=== PATIENT | female | born 1965 | race Caucasian/White ===

== ENCOUNTER → 2017-05-25 | Outpatient (CLI) | payer BC, OTHER ==
--- NOTE | 2017-05-25 08:48 | Diagnostic Imaging Report ---
Right breast ultrasound. Indication right breast mass. Findings: There is the cystic lesion with internal hypoechoic component measuring the 4 mm at 2:00 zone 3 CM from the nipple at the palpable area. It is in near the deep aspect of the skin. It is uncertain if this arising from skin components or the superficial breast tissue. No internal vascularity is seen and no shadowing. Impression: The palpable lesion is a 4 mm complex lesion favored to be a complicated cyst with internal debris arising from the superficial breast tissue or the deep layers of the skin. Clinical followup and followup ultrasound in 3 months to ensure no adverse development is recommended. BI-RADS 3. Dictated by: Dictated on workstation # [id number]
--- NOTE | 2017-05-25 08:51 | Diagnostic Imaging Report ---
EXAMINATION: Bilateral diagnostic mammogram with a Computer Aided Detection (CAD) system. Tomography evaluation was also performed bilaterally. INDICATION: Palpable lump in the right breast. COMPARISON: 12/13/2013. FINDINGS: The breasts are composed of heterogeneously dense parenchyma which may decrease mammographic sensitivity. There is no mass, architectural distortion, or suspicious cluster of calcifications seen. Allowing for technique and positional differences, no suspicious change is seen. IMPRESSION: Dense breasts with no definite change. ACR BI-RADS Category 2: Benign findings. Result letter will be mailed to the patient. Note: At least 10% of breast cancer is not imaged by mammography. Dictated by: Dictated on workstation # [id number]
== END ==
LOC: RAD 07:51
PROVIDERS: ATTEND Internal Medicine
DX: N60.01 Solitary cyst of right breast (principal)
CPT/HCPCS: 77066

== ENCOUNTER 2017-07-05 01:53 | Emergency (ER) | payer OTHER ==
[~2017-07-05] VITALS: Ht 162.6 cm; Wt 83.9 kg
[2017-07-05] MEDS ORDERED: NS IV 1000 ML 2,000 ML ONE ×2 (02:01→02:22)
[2017-07-05] MEDS ORDERED: FLUORESCEIN (FLUOR-I-STRIPS) 1 MG STRP ONE (02:02)
--- NOTE | 2017-07-05 02:25 | ED EENT ---
History of Present Illness General Chief Complaint: Exposure Stated Complaint: CHEMICAL SPLASHED IN EYE Source: patient Exam Limitations: no limitations History of Present Illness Time seen by provider: 02:14 Initial Comments Patient presents to ER after being exposed just prior to arrival to a citrus surface hall cleaner called citrus chisel. She had it sprayed in both of her eyes so she washed her eyes out in the sink for 5 minutes with sink water and then had a bottle of saline flushed into her eyes. She then presented to the ER. She is having burning sensation in both her eyes. No prior history of injury to her eyes. She says she was mixing up a spray bottle of the citrus chisel to use to decrease the floor and poured the agent into the bottle and then put a hose down into the bottle to fill it up but had too much pressure and it sprayed straight up out of the bottle into her face ran down her neck and back as well as in the both of her eyes. Patient wears glasses to read only. Allergies and Home Medications Allergies Coded Allergies: Penicillins (Verified Allergy, Unknown, 07/05/17) Sulfa (Sulfonamide Antibiotics) (Verified Allergy, Unknown, 07/05/17) codeine (Verified Allergy, Unknown, 07/05/17) hydrocodone (Verified Allergy, Unknown, 07/05/17) levofloxacin (Verified Allergy, Unknown, 07/05/17) promethazine (Verified Allergy, Unknown, 07/05/17) Home Medications Dextran 70/Hypromellose 15 Ml Drops, 2-4 DROPS OP Q2H PRN for EYE REDNESS, #15 Ref 0 Prescribed by: GAYTARI DOUGHERTY on 07/05/17 0351 Review of Systems Constitutional: No chills, No diaphoresis Eyes: Denies Blindness, Blurred Vision, Denies Drainage, Pain (burning) Ears: Denies Dizziness, Denies Pain Nose: denies clots, denies congestion Mouth: denies clots, denies loose teeth Throat: denies pain, denies swelling Respiratory: No cough, No short of breath Cardiovascular: No chest pain, No Hx of Intervention Gastrointestinal: No nausea, No vomiting Musculoskeletal: No joint pain, No joint swelling Skin: No lumps, other (pain and burning across to her face where she was splashed.) Neurological: Denies Headache, Denies Numbness Past Xxuxpwn-Rftygw-Kdklud Hx Patient Social History Alcohol Use: Denies Use Recreational Drug Use: No Smoking Status: Current Everyday Smoker Type Used: Cigarettes Recent Foreign Travel: No Contact w/Someone Who Travel: No Recent Hopitalizations: No Physical Abuse: No Sexual Abuse: No Mistreated: No Fear: No Surgeries History of Surgeries: No Respiratory History of Respiratory Disorde: No Cardiovascular History of Cardiac Disorders: No Neurological History of Neurological Disord: No Genitourinary History of Genitourinary Disor: No Gastrointestinal History of Gastrointestinal Di: No Musculoskeletal History of Musculoskeletal Dis: No Endocrine History of Endocrine Disorders: No HEENT History of HEENT Disorders: No Cancer History of Cancer: No Psychosocial History of Psychiatric Problem: No Suicide Risk Score: 0 Integumentary History of Skin or Integumenta: No Blood Transfusions History of Blood Disorders: No Visual Acuity : Eye Location: Bilaterally (right 20/70, left 20/40, bilateral 20/40.) Vision Acuity Degree: 20/40 Physical Exam Vital Signs Vital Sign - Last 12Hours 07/05/17 02:05 Temp 98.9 Pulse 69 Resp 20 B/P (MAP) 148/73 Pulse Ox 90 O2 Delivery Room Air General Appearance: WD/WN, mild distress Eyes: bilateral eye PERRL, bilateral eye EOMI, bilateral eye conjunctival inflammation, bilateral eye lid inflammation, bilateral eye other (erythema periorbital) Ears: bilateral ear auricle normal, bilateral ear canal normal Nose: normal inspection, No active bleeding Mouth/Throat: normal mouth inspection, pharynx normal Neck: full range of motion, normal inspection Cardiovascular: normal peripheral pulses, regular rate, rhythm Respiratory: chest non-tender, lungs clear, normal breath sounds Neurologic/Psychiatric: alert, oriented x 3 Skin: warm/dry, other (face and neck is erythematous and irritated) Progress/Results/Core Measures Results/Orders My Orders Orders - GAYATRI DOUGHERTY Ns Iv 1000 Ml (Sodium Chloride 0.9%) (07/05/17 02:01) Fluorescein Strips ([id number]-[id number]) (07/05/17 02:02) Ns Iv 1000 Ml (Sodium Chloride 0.9%) (07/05/17 02:22) Tetracaine 0.5% Ophth Caitlin Sdv (Tetracai (07/05/17 03:15) Tetracaine 0.5% Ophth Caitlin Sdv (Tetracai (07/05/17 02:56) Fluorescein Strips ([id number]-E-Ihiddl) (07/05/17 03:30) Medications Given in ED Current Medications Medications Dose Ordered Sig/Ventura Route Start Time Stop Time Status Last Admin Dose Admin Fluorescein Sodium 1 mg ONCE ONCE OU 07/05/17 03:30 07/05/17 03:31 DC 07/05/17 03:27 1 MG Sodium Chloride 2,000 ml @ ud STK-MED ONCE .ROUTE 07/05/17 02:01 07/05/17 02:09 DC 07/05/17 02:28 2,000 MLS/HR Sodium Chloride 2,000 ml @ ud STK-MED ONCE .ROUTE 07/05/17 02:22 07/05/17 02:30 DC 07/05/17 02:11 2,000 MLS/HR Tetracaine HCl 1 OR 2 DROPS INTO AFFEC... ONCE ONCE OP 07/05/17 03:15 07/05/17 03:16 DC 07/05/17 03:27 4 ML Vital Signs/I&O Vital Sign - Last 12Hours 07/05/17 02:05 Temp 98.9 Pulse 69 Resp 20 B/P (MAP) 148/73 Pulse Ox 90 O2 Delivery Room Air Progress Note : Time: 03:45 Progress Note Use 2 L each eye to flush the eyes using the Darren lens 30 minutes and then allowed her to rest for about 30 minutes. We gave her a couple tetracaine drops for comfort which helped immensely. We discussed everything that the poison center mentioned with the patient. Her pH by litmus paper was 7 and doing a Wood 's lamp there was no direct ulceration although her some streaky a noted in the sclera of the eye. Tried to call and discuss with the local optometry and also set up some follow-up for the patient in the morning and left messages. If they call back we will discuss the findings and get this set up. Consults Consults #1: Consults Notes poison Control Contacted @ 0220: Sodium hydroxide is the primary ingredient of this retail administrative assistant so we discussed and the plan is to flush both eyes for 30 minutes. After that allow the eyes to rest for approximately 30 minutes and then tested pH and if it's neutral and we can do a Krause lamp examination. We can use tetracaine drops after the flushes done just for comfort. They recommend artificial tears after that just to help the cornea heal. [place] may appear up to 1-2 days later. They recommend ophthalmology follow-up within 1-2 days. Normal saline or lactated Ringer's for flush. Consults #2: Consulting Physician: JALEN WOODSON OD Departure Impression Impression: Primary Impression: Alkaline chemical burn of left eye Additional Impression: Alkaline chemical burn of right eye Disposition: HOME, SELF-CARE Condition: Stable Departure-Patient Inst. Decision time for Depature: 04:00 Referrals: NO,LOCAL PHYSICIAN (PCP) Primary Care Physician AUBREE CUELLO (Family) Primary Care Physician Patient Instructions: Chemical Exposure to the Skin (DC), Chemical Eye Injury ( DC) Add. Discharge Instructions: Use regular soap water to clean the face and use a moisturizing ointment such as Eucerin, Cerave, or Nutraderm to keep the skin moist. You can use Artificial Tears 2-4 drops each eye every one to 2 hours to keep your eyes moist and help the cornea heal faster. Plan to follow up with commissioner of conciliation or ophthalmology in one to 2 days. After 0800 in the morning please call Dr. Woodson at [phone] to be seen either today or tomorrow for further evaluation. Thedischarge instructions reviewed with patient and/or family. Voiced understanding. Scripts Dextran 70/Hypromellose (Artificial Tears Eye Drops) 15 Ml Drops 2-4 DROPS OP Q2H Y for EYE REDNESS, #15 ML 0 Refills Prov: GAYATRI DOUGHERTY 07/05/17 Work/School Note: Work Release Form Date Seen in the Emergency Department: Jul 05, 2017 Return to Work: Jul 08, 2017 Restrictions: Need Release from Doctor Copy Copies To 1: GERRY QUISPE DO Copies To 2: JALEN WOODSON OD, TITUS J Jul 05, 2017 02:25
[2017-07-05] MEDS ORDERED: TETRACAINE 0.5% OPHTH SOLN 4 ML BTL (SINGLE DOSE ONLY) ONE (02:56)
[2017-07-05] MEDS ORDERED: TETRACAINE 0.5% OPHTH SOLN 4 ML BTL (SINGLE DOSE ONLY) OP ONE (03:15)
[2017-07-05] MEDS ORDERED: FLUORESCEIN (FLUOR-I-STRIPS) 1 MG STRP OU ONE (03:30)
[2017-07-05] MEDS ORDERED: DEXT15DR21 OP (03:51)
[2017-07-05 04:12] VITALS: BP 141/75
== END 2017-07-05 04:12 | disposition home or self-care (01) ==
LOC: EDUNIT# 01:53 → ER 01:57
DX: T65.891A Toxic effect of other specified substances, accidental (unintentional), initial encounter (principal); T26.51XA Corrosion of right eyelid and periocular area, initial encounter; T26.61XA Corrosion of cornea and conjunctival sac, right eye, initial encounter; T26.62XA Corrosion of cornea and conjunctival sac, left eye, initial encounter; T26.52XA Corrosion of left eyelid and periocular area, initial encounter; T32.0 Corrosions involving less than 10% of body surface; F17.210 Nicotine dependence, cigarettes, uncomplicated
CPT/HCPCS: 99282

== ENCOUNTER → 2017-09-07 | Outpatient (CLI) | payer OTHER ==
[~2017-09-07] MED LIST: DEXT15DR21 OP
--- NOTE | 2017-09-07 22:37 | Diagnostic Imaging Report ---
Right breast ultrasound. INDICATION: Right breast lump. FINDINGS: At 2 o'clock zone, 3 cm from the nipple, there is a 4 mm cyst seen just deep to the skin without change from the 05/25/2017 and corresponds with the palpable area. It appears to have minimal internal debris with through transmission and no internal vascularity. IMPRESSION: Unchanged minimally complicated 4 mm cyst just deep to the skin at 2 o'clock zone 3 cm from the nipple correlating with the palpable area. No suspicious solid component or change from the previous study. Clinical follow-up recommended. ACR BI-RADS Category 2: Benign findings. Dictated by: Dictated on workstation # [id number]
== END ==
LOC: RAD 08:45
PROVIDERS: ATTEND Internal Medicine
DX: N60.01 Solitary cyst of right breast (principal)

== ENCOUNTER 2017-10-02 00:22 | Emergency (ER) | payer OTHER ==
[~2017-10-02] VITALS: Ht 162.6 cm; Wt 86.2 kg
[2017-10-02 00:39] LABS: BASOPHILS # (AUTO) 0.1 10^3/uL (0.0-0.1); BASOPHILS % (AUTO) 0 % (0-10); EOSINOPHILS # (AUTO) 0.1 10^3/uL (0.0-0.3); EOSINOPHILS % (AUTO) 0 % (0-10); LYMPHOCYTES # (AUTO) 3.6 X 10^3 (1.0-4.0); LYMPHOCYTES % (AUTO) 26 % (12-44); MEAN CORPUSCULAR HEMOGLOBIN 32 PG (25-34); MEAN CORPUSCULAR HGB CONC 35 G/DL (32-36); MEAN CORPUSCULAR VOLUME 92 FL (80-99); MEAN PLATELET VOLUME 9.6 FL (7.4-10.4); MONOCYTES % (AUTO) 8 % (0-12); NEUTROPHILS # (AUTO) 8.9 X 10^3 (1.8-7.8); NEUTROPHILS % (AUTO) 65 % (42-75); PLATELET COUNT 223 10^3/uL (130-400); RED BLOOD COUNT 4.75 10^6/uL (4.35-5.85); WHITE BLOOD COUNT 13.6 10^3/uL (4.3-11.0)
--- NOTE | 2017-10-02 00:39 | ED Headache ---
General Stated Complaint: STROKE Source: patient, spouse Exam Limitations: no limitations (GAYATRI DOUGHERTY) History of Present Illness Time seen by provider: 00:25 Initial Comments Patient presents to ER by private conveyance with her spouse with a chief complaint that she is having a headache with blindness in her left eye this started suddenly 30 minutes ago without any warning. She does not have a history of migraines or headaches. No history of trauma recently. She was not doing anything significant at the time the headache came on but she took 4 tablets ibuprofen and did not have any relief from this. She says is worse headache she's ever had in her life. She has photophobia but no phonophobia. She is on doxycycline outpatient for a sinus infection of her left maxillary sinus by her primary care physician. She is also having some nausea but no vomiting. She used to smoke but quit does have a history of COPD but no vasculopathy or coronary artery disease. She is on amlodipine for high blood pressure. 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 She was not having any headaches with it but had some changes in her iris and pupil. She saw a neurologist at for it but they never came up with any definitive diagnosis or treatment plan. She has not had any problems with it since. (GAYATRI DOUGHERTY) Allergies and Home Medications Allergies Coded Allergies: Penicillins (Verified Allergy, Unknown, 07/05/17) Sulfa (Sulfonamide Antibiotics) (Verified Allergy, Unknown, 07/05/17) codeine (Verified Allergy, Unknown, 07/05/17) hydrocodone (Verified Allergy, Unknown, 07/05/17) levofloxacin (Verified Allergy, Unknown, 07/05/17) promethazine (Verified Allergy, Unknown, 07/05/17) Uncoded Allergies: IV CONTRAST (Allergy, Mild, 10/02/17) Home Medications Amlodipine/Benazepril 1 Cap Cap, 1 CAP PO DAILY, (Reported) Cyclobenzaprine HCl 5 Mg Tablet, 5 MG PO, (Reported) [ibuprofen] , for PAIN-MILD, (Reported) Constitutional: No chills, No fever, No malaise Eyes: See HPI, Blindness, Photophobia Ears, Nose, Mouth, Throat: denies ear pain, denies mouth pain Respiratory: No cough, No short of breath Cardiovascular: No chest pain, No palpitations, No syncope Gastrointestinal: No abdominal pain, No constipation, No diarrhea, nausea, No vomiting Genitourinary: No discharge, No dysuria : No (GAYATRI DOUGHERTY) Past Ylsbujr-Mmxiuy-Etcxvh Hx Patient Social History Alcohol Use: Denies Use Recreational Drug Use: No Smoking Status: Former Smoker Type Used: Cigarettes Recent Foreign Travel: No Contact w/Someone Who Travel: No Recent Hopitalizations: No (GAYATRI DOUGHERTY) Surgeries History of Surgeries: No (GAYATRI DOUGHERTY) Respiratory History of Respiratory Disorde: No (GAYATRI DOUGHERTY) Cardiovascular History of Cardiac Disorders: No (GAYATRI DOUGHERTY) Neurological History of Neurological Disord: No (GAYATRI DOUGHERTY) Genitourinary History of Genitourinary Disor: No (GAYATRI DOUGHERTY) Gastrointestinal History of Gastrointestinal Di: No (GAYATRI DOUGHERTY) Musculoskeletal History of Musculoskeletal Dis: No (GAYATRI DOUGHERTY) Endocrine History of Endocrine Disorders: No (GAYATRI DOUGHERTY) HEENT History of HEENT Disorders: No (GAYATRI DOUGHERTY) Cancer History of Cancer: No (GAYATRI DOUGHERTY) Psychosocial History of Psychiatric Problem: No (GAYATRI DOUGHERTY) Integumentary History of Skin or Integumenta: No (GAYATRI DOUGHERTY) Blood Transfusions History of Blood Disorders: No (GAYATRI DOUGHERTY) Physical Exam Vital Signs Vital Sign - Last 12Hours 10/02/17 00:22 Temp 98.0 Pulse 74 Resp 18 B/P (MAP) 166/78 (107) Pulse Ox 99 O2 Delivery Room Air (SHYRAYSA Figueroa MD) Vital Signs Capillary Refill : (GAYATRI DOUGHERTY) General Appearance: severe distress HEENT: PERRL/EOMI, TMs normal, pharynx normal, other (left maxillary tenderness to palpation) Neck: non-tender, normal inspection Cardiovascular: normal peripheral pulses, regular rate, rhythm, no edema Respiratory: chest non-tender, lungs clear, normal breath sounds, no respiratory distress Gastrointestinal: normal bowel sounds, non tender, soft Extremities: normal range of motion, non-tender, no pedal edema, no calf tenderness, normal capillary refill Psychiatric: alert, oriented x 3 Cra[place] Nerves: normal hearing, normal speech, PERRL, No facial asymmetry, No facial droop, other (left eye photophobia and decreased vision.) Coordination/Gait: normal gait Motor/Sensory: no motor deficit, no sensory deficit (4 extremities), no pronator drift Reflexes: 2+ Bicep (R), 2+ Bicep (L) Skin: normal color, warm/dry (GAYATRI DOUGHERTY) Discussed Risk,Benefits: Yes Patient Consents: Yes Position: Lying, Right Sterile Technique: Yes Opening Pressure: 32 Fluid Color: straw Size of Disposal Tray Used: Adult Other Comment: [place] tap. Patient tolerated well. (GAYATRI DOUGHERTY) Progress/Results/Core Measures Results/Orders Lab Results Laboratory Tests Test 10/02/17 00:25 10/02/17 00:28 10/02/17 01:30 10/02/17 03:13 Range/Units Erythrocyte Sedimentation Rate 4 0-30 MM/HR C-Reactive Protein High Sensitivity 0.82 H 0.00-0.50 MG/DL White Blood Count 13.6 H 4.3-11.0 10^3/uL Red Blood Count 4.75 4.35-5.85 10^6/uL Hemoglobin 15.1 11.5-16.0 G/DL Hematocrit 44 35-52 % Mean Corpuscular Volume 92 80-99 FL Mean Corpuscular Hemoglobin 32 25-34 PG Mean Corpuscular Hemoglobin Concent 35 32-36 G/DL Red Cell Distribution Width 13.0 10.0-14.5 % Platelet Count 223 130-400 10^3/uL Mean Platelet Volume 9.6 7.4-10.4 FL Neutrophils (%) (Auto) 65 42-75 % Lymphocytes (%) (Auto) 26 12-44 % Monocytes (%) (Auto) 8 0-12 % Eosinophils (%) (Auto) 0 0-10 % Basophils (%) (Auto) 0 0-10 % Neutrophils # (Auto) 8.9 H 1.8-7.8 X 10^3 Lymphocytes # (Auto) 3.6 1.0-4.0 X 10^3 Monocytes # (Auto) 1.0 0.0-1.0 X 10^3 Eosinophils # (Auto) 0.1 0.0-0.3 10^3/uL Basophils # (Auto) 0.1 0.0-0.1 10^3/uL Sodium Level 140 135-145 MMOL/L Potassium Level 4.1 3.6-5.0 MMOL/L Chloride Level 100 98-107 MMOL/L Carbon Dioxide Level 28 21-32 MMOL/L Anion Gap 12 5-14 MMOL/L Blood Urea Nitrogen 13 7-18 MG/DL Creatinine 0.72 0.60-1.30 MG/DL Estimat Glomerular Filtration Rate > 60 BUN/Creatinine Ratio 18 Glucose Level 120 H 70-105 MG/DL Calcium Level 9.6 8.5-10.1 MG/DL Total Bilirubin 0.5 0.1-1.0 MG/DL Aspartate Amino Transf (AST/SGOT) 15 5-34 U/L Alanine Aminotransferase (ALT/SGPT) 18 0-55 U/L Alkaline Phosphatase 74 40-136 U/L Total Protein 7.7 6.4-8.2 GM/DL Albumin 4.6 H 3.2-4.5 GM/DL Urine Color YELLOW Urine Clarity VERY CLOUDY H Urine pH 7 5-9 Urine Specific [place] 1.010 L 1.016-1.022 Urine Protein NEGATIVE NEGATIVE Urine Glucose (UA) NEGATIVE NEGATIVE Urine Ketones NEGATIVE NEGATIVE Urine Nitrite NEGATIVE NEGATIVE Urine Bilirubin NEGATIVE NEGATIVE Urine Urobilinogen NORMAL NORMAL MG/DL Urine Leukocyte Esterase NEGATIVE NEGATIVE Urine RBC (Auto) NEGATIVE NEGATIVE Urine RBC NONE /HPF Urine WBC NONE /HPF Urine Squamous Epithelial Cells 2-5 /HPF Urine Crystals PRESENT H /LPF Urine Amorphous Sediment LARGE DHIRAJ URATES H /LPF Urine Bacteria NEGATIVE /HPF Urine Casts NONE /LPF Urine Mucus NEGATIVE /LPF Urine Culture Indicated NO Urine Opiates Screen NEGATIVE NEGATIVE Urine Oxycodone Screen NEGATIVE NEGATIVE Urine Methadone Screen NEGATIVE NEGATIVE Urine Propoxyphene Screen NEGATIVE NEGATIVE Urine Barbiturates Screen NEGATIVE NEGATIVE Ur Tricyclic Antidepressants Screen NEGATIVE NEGATIVE Urine Phencyclidine Screen NEGATIVE NEGATIVE Urine Amphetamines Screen NEGATIVE NEGATIVE Urine Methamphetamines Screen NEGATIVE NEGATIVE Urine Benzodiazepines Screen NEGATIVE NEGATIVE Urine Cocaine Screen NEGATIVE NEGATIVE Urine Cannabinoids Screen NEGATIVE NEGATIVE CSF Tube Number 4 CSF Appearance CLEAR CSF Color COLORLESS CSF WBC 0 0-5 CELLS CSF RBC 4 H 0-0 CELLS CSF Lymphocytes % CSF Mononuclear WBCs % CSF Polynuclear WBCs % CSF Glucose 80 50-80 MG/DL CSF Total Protein 20 15-40 MG/DL (RAYSA HE MD) My Orders Orders - RAYSA HE MD Diphenhydramine Injection (Benadryl Inje (10/02/17 08:00) (RAYSA HE MD) Medications Given in ED Current Medications Medications Dose Ordered Sig/Ventura Route Start Time Stop Time Status Last Admin Dose Admin Fentanyl Citrate 50 mcg ONCE ONCE IVP 10/02/17 00:45 10/02/17 00:46 DC 10/02/17 04:06 50 MCG Fentanyl Citrate 100 mcg ONCE ONCE IVP 10/02/17 01:15 10/02/17 01:16 DC 10/02/17 01:23 100 MCG Iohexol 75 ml ONCE ONCE IV 10/02/17 05:30 10/02/17 05:38 DC 10/02/17 05:19 75 ML Ketorolac Tromethamine 15 mg ONCE ONCE IVP 10/02/17 02:00 10/02/17 02:01 DC 10/02/17 02:02 15 MG Ondansetron HCl 4 mg ONCE ONCE IVP 10/02/17 00:45 10/02/17 00:46 DC 10/02/17 01:22 4 MG Sodium Chloride 80 ml ONCE ONCE IV 10/02/17 05:30 10/02/17 05:38 DC 10/02/17 05:19 80 ML Vancomycin HCl 1000 mg/Sodium Chloride 250 ml @ 250 mls/hr ONCE ONCE IV 10/02/17 02:15 10/02/17 03:14 DC 10/02/17 02:41 250 MLS/HR (RAYSA HE MD) Vital Signs/I&O Vital Sign - Last 12Hours 10/02/17 00:22 Temp 98.0 Pulse 74 Resp 18 B/P (MAP) 166/78 (107) Pulse Ox 99 O2 Delivery Room Air (RAYSA HE MD) Progress Note #1: Time: 00:38 Progress Note Concern for subarachnoid hemorrhage versus worsening maxillary sinus disease. Establish an IV and get a CT scan of the head we will address her pain and nausea. Progress Note #2: Time: 01:12 Progress Note The patient's pain was 12 out of 10 on arrival but is now 9 out of 10 after getting some pain medicine. Nausea is still present so we'll give her some more Zofran. She has an allergy to promethazine. CT does not show anything that would acutely explain her symptoms. Plan is to get her pain under better control and get a good eye exam. 0200: Funduscopic Eye exam unrevealing. We'll patient is having some left sided neck stiffness and pain she is not having any fever or altered mental status. She does have an prior infection in the maxillary sinus being treated with doxycycline appropriately. She is having some left temporal tenderness as well to palpation that was not present when she initially arrived. Certainly will think about giant cell arteritis and get an ESR/CRP. Plan on obtaining cerebral spinal fluid looking for evidence of subarachnoid hemorrhage not seen on imaging or infection. Bilateral visual acuity is 20/40, right eye is 20/30 and left eye is 20/40. Progress Note #3: Time: 05:02 Progress Note For reference tube 1 red out an average of 7 red blood cells and 1 white blood cell between both windows. (GAYATRI DOUGHERTY) Progress Note : Time: 07:55 Progress Note Patient developed itching redness and swelling over her face following CT with contrast. Patient received 50 mg of Benadryl IV. Patient was in no respiratory distress and demonstrated no wheezing. (RAYSA HE MD) Diagnostic Imaging Diagonstic Imaging: CT Plain Films/CT/US/NM/MRI: head (maxillofacial) Comments No acute intracranial bleed, mass, mass effect. Minimal ethmoid/maxillary sinus mucosal thickening. Reviewed: Reviewed [place] Study, Reviewed by Me, Discussed w/ Radiologist (neg) Diagonstic Imaging: CT Plain Films/CT/US/NM/MRI: head (angiogram head and neck) Comments No hemodynamically significant stenosis and no aneurysm in the anterior/ posterior circulation. Atherosclerosis and vascular tortuosity without hemodynamically significant stenosis, dissection, or aneurysm in the neck. Centrilobular emphysema. Cervical spondylosis. Reviewed: Reviewed [place] Study, Reviewed by Me (GAYATRI DOUGHERTY) Consults Consults : Consults Notes 0355: Marilee Faria Coordinator: Dr Akins, Neurosurgery: They can do cerebrovascular and he is worried at that if this is a subarachnoid hemorrhage that's what she would need and that the patient would be better served at . They also are on ICU diversion. (GAYATRI DOUGHERTY) Transfer of Care Transfer of Care Time: 06:30 Care transferred to: Shy (GAYATRI DOUGHERTY) Departure Impression Impression: Primary Impression: [place] headache Disposition: 02 XFER SHT-TRM HOSP Condition: Stable Transfer Time Spoke to Accepting Phy: 04:07 Transfer Progress Notes Coordinator: Will get Triage Coordinator RN. 0425: Spoke with Dr. Unger, neurosurgery and he says go ahead and get a CT angiogram of the head and neck and he will talk to Dr. Willett neuro critical care and call us back. 0445: Dr. Unger called back after speaking with Dr. Willett and they will wait to see the results of the CT angiogram as long as the patient is stable to help them decide where the patient needs to go however they more than happy to take the patient. 0515: Stat read CT report called to Dr. Unger. Report left with Kenia triage nurse. 0531: Patient is accepted and they have a bed for her to Dr. Willett. Transfer Facility: [facility] Method of Transfer: EMS ([facility]) (GAYATRI DOUGHERTY) Departure-Patient Inst. Referrals: NO,LOCAL PHYSICIAN (PCP) Primary Care Physician AUBREE CUELLO (Family) Primary Care Physician Copy Copies To 1: GERRY QUISPE TITUS J Oct 02, 2017 00:39 RAYSA HE MD Oct 02, 2017 07:56
[2017-10-02] MEDS ORDERED: fentaNYL INJECTION 100 MCG/2 ML AMP IVP ONE ×3 (00:45→04:00)
[2017-10-02] MEDS ORDERED: ONDANSETRON 4 MG/2 ML (SDV) Z0FRAN IVP ONE ×3 (00:45→01:15)
[2017-10-02 00:52] LABS: ALANINE AMINOTRANSFERASE 18 U/L (0-55); ALBUMIN 4.6 GM/DL (3.2-4.5); ANION GAP 12 MMOL/L (5-14); ASPARTATE AMINO TRANSFERASE 15 U/L (5-34); BILIRUBIN,TOTAL 0.5 MG/DL (0.1-1.0); BLOOD UREA NITROGEN 13 MG/DL (7-18); BUN/CREATININE RATIO 18; CALCIUM 9.6 MG/DL (8.5-10.1); CARBON DIOXIDE 28 MMOL/L (21-32); CHLORIDE 100 MMOL/L (98-107); CREATININE SERUM 0.72 MG/DL (0.60-1.30); GFR ESTIMATED > 60; GLUCOSE 120 MG/DL (70-105); POTASSIUM 4.1 MMOL/L (3.6-5.0); SODIUM 140 MMOL/L (135-145); TOTAL PROTEIN 7.7 GM/DL (6.4-8.2)
[2017-10-02 01:38] LABS: BILIRUBIN,URINE NEGATIVE (NEGATIVE); KETONES,URINE NEGATIVE (NEGATIVE); LEUKOCYTE ESTERASE ,URINE NEGATIVE (NEGATIVE); NITRITE,URINE NEGATIVE (NEGATIVE); PH,URINE 7 (5-9); PROTEIN,URINE NEGATIVE (NEGATIVE); UROBILINOGEN,URINE NORMAL (NORMAL)
[2017-10-02] MEDS ORDERED: KETOROLAC 30 MG/ML VIAL IVP ONE (02:00)
[2017-10-02] MEDS ORDERED: VANCOMYCIN INJECTION 1,000 MG in NS (IVPB) 250 ML IV ONE (02:15)
[2017-10-02 03:34] LABS: APPEARANCE,CSF CLEAR; COLOR,CSF COLORLESS; WHITE BLOOD CELL,CSF 0 CELLS (0-5)
[2017-10-02 03:47] LABS: CSF GLUCOSE 80 MG/DL (50-80); CSF TOTAL PROTEIN 20 MG/DL (15-40)
[2017-10-02] MEDS ORDERED: IOHEXOL 350 MG/ML 100 ML (OMNIPAQUE 350) VIAL IV ONE (05:30)
[2017-10-02] MEDS ORDERED: NS 100 ML (IVPB) BAG IV ONE (05:30)
[2017-10-02] MEDS ORDERED: ibuprofen (05:49)
[2017-10-02] MEDS ORDERED: CYCL5TAB PO (05:49)
[2017-10-02] MEDS ORDERED: NF-LT10/20 PO (05:51)
--- NOTE | 2017-10-02 06:45 | Diagnostic Imaging Report ---
PROCEDURE: CT angiography of the head and CT angiography of the neck with and without contrast. TECHNIQUE: Contiguous noncontrast images were obtained from the skull base through the vertex. After intravenous contrast administration, helical CT angiography of the neck was performed. Source data was reformatted into multiple MIP projections. Delayed post contrast acquisition was also obtained. INDICATION: Severe headache. FINDINGS: Precontrast imaging demonstrates ventricles and sulci to be unremarkable. Normal nathan-white differentiation. No suggestion for edema. No intracranial hemorrhage. Aortic arch incompletely imaged. There does appear to be some calcified plaquing at the aortic arch. Visualized portions of the brachiocephalic trunk, right common carotid artery, and right carotid bifurcation are unremarkable without significant stenosis. Mild plaque-like formation with calcification at the proximal internal carotid artery. The internal carotid artery is markedly tortuous with areas of folding and kinking present, however, no significant stenosis present. The left common carotid artery origin is not well visualized. Visualized left common carotid artery unremarkable. There is atherosclerotic plaquing with calcification at the bifurcation and proximal internal carotid artery. There is mildly tortuous course of the left internal carotid artery. No stenosis. There is atherosclerotic plaquing at the origin of the left vertebral artery without significant stenosis. Right vertebral artery appearing relatively unremarkable. There is advanced emphysematous changes of the visualized lung apices. Cervical spondylosis present. CTA of the [place] demonstrates the intracranial portions of the bilateral internal carotid arteries to be unremarkable without significant stenosis. There is some atherosclerotic plaquing particularly at the left cavernous/supraclinoid portion on the intracranial artery without stenosis. The bilateral anterior cerebral arteries unremarkable. The middle cerebral arteries also appearing unremarkable. No evidence for large-vessel occlusion or significant vascular malformation. The posterior circulation demonstrates basilar artery to be unremarkable. The bilateral posterior cerebral arteries appearing unremarkable. Postcontrast imaging of the head demonstrates no abnormal enhancing intracranial mass lesion. IMPRESSION: CTA of the neck demonstrates atherosclerotic and vascular tortuosity without findings to suggest significant stenosis. No intraluminal abnormality to suggest dissection. No aneurysm. CTA of the [place] demonstrates no findings to suggest significant stenosis and/or aneurysm. A preliminary report was provided by [employer]. Dictated by: Dictated on workstation # [id number]
--- NOTE | 2017-10-02 07:22 | Diagnostic Imaging Report ---
INDICATION: Severe headache Images through the head were obtained without contrast. The ventricles are normal in size, shape and position. There is no acute parenchymal hemorrhage, edema or mass. There is no extra-axial mass or hemorrhage. IMPRESSION: Normal CT of the head. Dictated by: Dictated on workstation # [id number]
--- NOTE | 2017-10-02 07:28 | Diagnostic Imaging Report ---
PROCEDURE: CT maxillofacial without contrast. TECHNIQUE: Multiple contiguous axial images were obtained through the facial bones without the use of intravenous contrast. INDICATION: Severe headache. FINDINGS: There is minimal ethmoid and maxillary sinus mucosal thickening. No air-fluid levels. The ostiomeatal complexes appear with minimal soft tissue density but overall relatively unobstructed. Nasal cavity with mild rightward nasal septal deviation. Osseous structures appear intact and without acute finding. Orbits unremarkable. IMPRESSION: Minimal ethmoid and maxillary sinus mucosal thickening. A preliminary report was provided by [employer]. Dictated by: Dictated on workstation # [id number]
[2017-10-02] MEDS ORDERED: diphenhydrAMINE 50 MG/ML INJ (BENADRYL) ONE (07:51)
[2017-10-02] MEDS ORDERED: diphenhydrAMINE 50 MG/ML INJ (BENADRYL) IVP ONE (08:00)
[2017-10-02 08:35] VITALS: BP 150/81
[2017-10-04 15:26] LABS: HSV 1 DNA PCR Not Detected (Not Detected)
[2017-10-05 06:59] LABS: HSV 2 DNA PCR Not Detected (Not Detected)
[2017-10-05 15:31] LABS: STREP PNEUMOCOCCUS ANTIG Negative
== END 2017-10-02 08:35 | disposition short-term general hospital (02) ==
LOC: EDUNIT# 00:22 → ER 00:24
DX: G44.53 Primary thunderclap headache (principal); J44.9 Chronic obstructive pulmonary disease, unspecified; Z87.891 Personal history of nicotine dependence
CPT/HCPCS: 36415; 62270; 70450; 70486; 70496; 70498; 80053; 80306; 81000; 82945; 84157; 85025; 85652; 86141; 87070; 87205; 87529; 87899; 89051

== ENCOUNTER 2017-12-27 05:08 | Emergency (ER) | payer OTHER ==
[~2017-12-27] VITALS: Ht 162.6 cm; Wt 92.5 kg
[~2017-12-27 05:08] MED LIST changes: +CYCL5TAB PO; +NF-LT10/20 PO; +ibuprofen
[2017-12-27] MEDS ORDERED: KETOROLAC 30 MG/ML VIAL IVP STA (05:16)
[2017-12-27] MEDS ORDERED: NS IV 1000 ML 1,000 ML IV ONE (05:16)
[2017-12-27] MEDS ORDERED: ONDANSETRON 4 MG/2 ML (SDV) Z0FRAN IVP ONE (05:30)
--- NOTE | 2017-12-27 05:34 | ED General ---
General Chief Complaint: Trauma-Non Activation Stated Complaint: FALL Nursing Triage Note: PATIENT STATES THAT SHE FELL AT WORK, LOST CONSCIOUSNESS BRIEFLY. SHE HIT HER HEAD ON THE FLOOR. SHE HAS CONDE AND MILD NECK PAIN. TOOK REGLAN AND BENADRYL FOR THE HEADACHE. Nursing Sepsis Screen: No Definite Risk Source of Information: Patient, EMS Exam Limitations: No Limitations (CORINA HOPPER MD) History of Present Illness Date Seen by Provider: Dec 27, 2017 Time Seen by Provider: 05:08 Initial Comments Here by EMS with report of passing out and a headache. She is at work when she got her headache and took some Benadryl and Reglan. Afterwards she became drowsy and passed out. She does complain of mid C-spine pain and headache after falling. Denies other injury. Previous similar presentation resulted in evaluation for aneurysm which was not found. This was a few months ago. She was transferred to for workup. They found the migraine type headache. Denies recent fever. Does complain of nausea and had an episode of vomiting. Timing/Duration: 1 Hour Severity: Moderate, Severe Associated Systoms: No Chest Pain, No Cough, No Fever/Chills, Headaches, Nausea /Vomiting, No Shortness of Air, Syncope, No Weakness (CORINA HOPPER MD) Allergies and Home Medications Allergies Coded Allergies: Penicillins (Verified Allergy, Unknown, 07/05/17) Sulfa (Sulfonamide Antibiotics) (Verified Allergy, Unknown, 07/05/17) codeine (Verified Allergy, Unknown, 07/05/17) hydrocodone (Verified Allergy, Unknown, 07/05/17) levofloxacin (Verified Allergy, Unknown, 07/05/17) promethazine (Verified Allergy, Unknown, 07/05/17) Uncoded Allergies: IV CONTRAST (Allergy, Mild, 10/02/17) Home Medications Amlodipine/Benazepril 1 Cap Cap, 1 CAP PO DAILY, (Reported) Ondansetron 4 Mg Tab.rapdis, 4 MG SL Q4H PRN for NAUSEA/VOMITING-1ST LINE Prescribed by: HARPREET BOB on 12/27/17 0736 [ibuprofen] , for PAIN-MILD, (Reported) Patient Home Medication List Home Medication List Reviewed: Yes (CORINA HOPPER MD) Constitutional: see HPI, No chills, No fever EENTM: no symptoms reported, eye pain (photophobia) Respiratory: no symptoms reported Cardiovascular: no symptoms reported Gastrointestinal: see HPI, No abdominal pain, nausea, vomiting Genitourinary: no symptoms reported Musculoskeletal: No back pain, muscle pain, neck pain Skin: no symptoms reported Psychiatric/Neurological: See HPI, Headache (Frontal, moderate and persistent) (CORINA HOPPER MD) All Other Systems Reviewed Negative Unless Noted: Yes (CORINA HOPPER MD) Past [id number]-[id number]-Shkxnb Hx Patient Social History Alcohol Use: Denies Use Recreational Drug Use: No Smoking Status: Former Smoker Type Used: Cigarettes Former Smoker, Quit: Oct 17, 2017 2nd Hand Smoke Exposure: No Recent Foreign Travel: No Contact w/Someone Who Travel: No Recent Infectious Disease Expo: No Recent Hopitalizations: No (CORINA HOPPER MD) Surgeries History of Surgeries: Yes Surgeries: Appendectomy, Gallbladder, Orthopedic, Tonsillectomy (CORINA HOPPER MD) Respiratory History of Respiratory Disorde: No (CORINA HOPPER MD) Cardiovascular History of Cardiac Disorders: No (CORINA HOPPER MD) Neurological History of Neurological Disord: No (CORINA HOPPER MD) Genitourinary History of Genitourinary Disor: No (CORINA HOPPER MD) Gastrointestinal History of Gastrointestinal Di: No (CORINA HOPPER MD) Musculoskeletal History of Musculoskeletal Dis: No (CORINA HOPPER MD) Endocrine History of Endocrine Disorders: No (CORINA HOPPER MD) HEENT History of HEENT Disorders: No (CORINA HOPPER MD) Cancer History of Cancer: No (CORINA HOPPER MD) Psychosocial History of Psychiatric Problem: No (CORINA HOPPER MD) Integumentary History of Skin or Integumenta: No (CORINA HOPPER MD) Blood Transfusions History of Blood Disorders: No (CORINA HOPPER MD) Reviewed Nursing Assessment Reviewed/Agree w Nursing PMH: Yes (CORINA HOPPER MD) Physical Exam Vital Signs Vital Signs - First Documented 12/27/17 05:16 Temp 97.0 Pulse 64 Resp 18 B/P (MAP) 132/91 (105) Pulse Ox 100 O2 Delivery Room Air (BRUEGGEMANN,HARPREET T MD) Vital Signs Capillary Refill : Less Than 3 Seconds (CORINA HOPPER MD) General Appearance: No Apparent Distress, WD/WN HEENT: PERRL/EOMI, Pharynx Normal Neck: Tender Midline (mid C-spine), Other (remains in a c-collar due to pain.) Respiratory: Lungs Clear, Normal Breath Sounds Cardiovascular: Regular Rate, Rhythm, No Murmur Gastrointestinal: Non Tender, Soft Back: Normal Inspection, No CVA Tenderness, No Vertebral Tenderness Extremity: Normal Range of Motion, Non Tender Neurologic/Psychiatric: Alert, Oriented x3, No Motor/Sensory Deficits (CORINA HOPPER MD) Progress/Results/Core Measures Suspected Sepsis Recent Fever Within 48 Hours: No Infection Criteria Present: None New/Unexplained Altered Menta: No Sepsis Screen: No Definite Risk Sepsis Diagnosis: SIRS Temperature:97.0 Pulse: 64 Respiratory Rate: 18 Blood Pressure 132 /91 Mean: 105 (CORINA HOPPER MD) Results/Orders Lab Results Laboratory Tests Test 12/27/17 05:30 Range/Units White Blood Count 9.8 4.3-11.0 10^3/uL Red Blood Count 4.60 4.35-5.85 10^6/uL Hemoglobin 14.8 11.5-16.0 G/DL Hematocrit 43 35-52 % Mean Corpuscular Volume 93 80-99 FL Mean Corpuscular Hemoglobin 32 25-34 PG Mean Corpuscular Hemoglobin Concent 35 32-36 G/DL Red Cell Distribution Width 12.4 10.0-14.5 % Platelet Count 199 130-400 10^3/uL Mean Platelet Volume 9.4 7.4-10.4 FL Neutrophils (%) (Auto) 74 42-75 % Lymphocytes (%) (Auto) 20 12-44 % Monocytes (%) (Auto) 6 0-12 % Eosinophils (%) (Auto) 1 0-10 % Basophils (%) (Auto) 1 0-10 % Neutrophils # (Auto) 7.2 1.8-7.8 X 10^3 Lymphocytes # (Auto) 1.9 1.0-4.0 X 10^3 Monocytes # (Auto) 0.5 0.0-1.0 X 10^3 Eosinophils # (Auto) 0.1 0.0-0.3 10^3/uL Basophils # (Auto) 0.1 0.0-0.1 10^3/uL Sodium Level 141 135-145 MMOL/L Potassium Level 4.4 3.6-5.0 MMOL/L Chloride Level 100 98-107 MMOL/L Carbon Dioxide Level 29 21-32 MMOL/L Anion Gap 12 5-14 MMOL/L Blood Urea Nitrogen 13 7-18 MG/DL Creatinine 0.69 0.60-1.30 MG/DL Estimat Glomerular Filtration Rate > 60 BUN/Creatinine Ratio 19 Glucose Level 130 H 70-105 MG/DL Calcium Level 9.5 8.5-10.1 MG/DL Total Bilirubin 0.4 0.1-1.0 MG/DL Aspartate Amino Transf (AST/SGOT) 21 5-34 U/L Alanine Aminotransferase (ALT/SGPT) 16 0-55 U/L Alkaline Phosphatase 67 40-136 U/L C-Reactive Protein High Sensitivity 1.25 H 0.00-0.50 MG/DL Total Protein 7.8 6.4-8.2 GM/DL Albumin 4.6 H 3.2-4.5 GM/DL (HARPREET CASTLE MD) My Orders Orders - HARPREET CASTLE MD Metoclopramide Injection (Reglan Injecti (12/27/17 07:00) Diphenhydramine Tablet (Benadryl Tablet) (12/27/17 07:00) Nortriptyline Capsule (Pamelor Capsule) (12/27/17 07:00) (HARPREET CASTLE MD) Medications Given in ED Current Medications Medications Dose Ordered Sig/[place] Route Start Time Stop Time Status Last Admin Dose Admin Diphenhydramine HCl 50 mg ONCE ONCE PO 12/27/17 07:00 12/27/17 07:01 DC 12/27/17 06:59 50 MG Metoclopramide HCl 10 mg ONCE ONCE IVP 12/27/17 07:00 12/27/17 07:01 DC 12/27/17 06:59 10 MG Nortriptyline HCl 10 mg ONCE ONCE PO 12/27/17 07:00 12/27/17 07:01 DC 12/27/17 07:12 10 MG Ondansetron HCl 4 mg ONCE ONCE IVP 12/27/17 05:30 12/27/17 05:31 DC 12/27/17 05:27 4 MG Sodium Chloride 1,000 ml @ 0 mls/hr Q0M ONCE IV 12/27/17 05:16 12/27/17 05:18 DC 12/27/17 05:40 0 MLS/HR (HARPREET CASTLE MD) Vital Signs/I&O Vital Sign - Last 12Hours 12/27/17 05:16 Temp 97.0 Pulse 64 Resp 18 B/P (MAP) 132/91 (105) Pulse Ox 100 O2 Delivery Room Air (HARPREET CASTLE MD) Vital Signs/I&O Capillary Refill : Less Than 3 Seconds (CORINA HOPPER MD) Blood Pressure Mean: 105 Progress Note : Progress Note Seen and evaluated. Normal saline 1 L bolus. Labs, CT head and neck, Toradol 30 mg IV and Zofran 4 mg IV ordered. Monitor patient. (CORINA HOPPER MD) Progress Note #1: Time: 06:[address] head and cervical spine was viewed by me and report reviewed. There were no acute injuries identified. C-collar was removed. Patient reports her headache is not much better. She reports her usual cocktail involves Benadryl and Reglan which she attempted to take at work. She believes she vomited these medications. She will receive some Reglan by IV route followed by Benadryl. She usually follows these medications with nortriptyline. Progress Note #2: Time: 07:32 Progress Note Patient also received nortriptyline 10 mg which she normally takes in the morning. Patient reports she still has some residual headache. Her pain decreased from a 10 down to a 6. Although she has some residual headache, she wishes to return home. She has been able to sleep in the exam room and would like to sleep at home. (HARPREET CASTLE MD) Diagnostic Imaging Diagonstic Imaging: CT Plain Films/CT/US/NM/MRI: c-spine, head Comments CT head and cervical spine viewed by me and report reviewed. See report below: NAME: WESLEY CUELLO [facility] REC#: [id number] PT STATUS: REG ER : 1965 PHYSICIAN: CORINA HOPPER MD ADMIT DATE: 12/27/17/ER Draft Date of Exam:12/27/17 CT HEAD/CERVICAL SPINE WO PROCEDURE: CT head and CT cervical spine without contrast. TECHNIQUE: Multiple contiguous axial images were obtained through the brain and cervical spine without the use of intravenous contrast. Sagittal and coronal reformations through the cervical spine were then performed. INDICATION: Migraine, head pain, resulted in fall. Head CT compared 10/02/2017. Cervical spine CT correlated with CT angio neck study 10/02/2017. CT head: There is no intracranial hemorrhage. There is no hydrocephalus, edema, mass or mass effect. No findings of focal or generalized cerebral edema. The basilar cisterns patent, the sulci were non-effaced. The orbits, sinuses and calvarium within normal limits. There has been no change. CT cervical spine: Degenerative disc space narrowing and mild endplate osteophytes on a chronic basis are stable. There is straightening of curvature without listhesis. Vertebral statures unremarkable and no acute or suspicious endplate irregularity. No paravertebral mass, hemorrhage or fluid collection. No evidence for fracture. IMPRESSION: CT head: Stable unremarkable head CT cervical spine: 1. Degenerative changes without fracture, listhesis or substantial stenosis. 2. Not mentioned above, carotid atherosclerotic vascular calcifications. Dictated on workstation # [id number] Dict: 12/27/17 0604 Trans: 12/27/17 0630 LEBRON [id number] Interpreted by: ANA COATS (HARPREET CASTLE MD) Departure Impression Impression: Primary Impression: Acute headache Qualified Codes: R51 - Headache Additional Impressions: Nausea and vomiting Qualified Codes: R11.2 - Nausea with vomiting, unspecified Fall on same level Qualified Codes: W18.30XA - Fall on same level, unspecified, initial encounter Disposition: 01 HOME, SELF-CARE Condition: Improved Departure-Patient Inst. Decision time for Depature: 07:34 (HARPREET CASTLE MD) Referrals: [facility] [place] (PCP) Primary Care Physician AUBREE CUELLO (Family) Primary Care Physician Patient Instructions: Headache, Adult Add. Discharge Instructions: Sleep in a quiet, calm, dark environment for the remainder of the morning. Stay well-hydrated. You may take ibuprofen up to 600 mg every 6 hours as needed and/or Tylenol (acetaminophen) up to 1000 mg every 6 hours as needed for additional treatment of headache. Return to care if symptoms worsen. Follow up with your primary care provider within the next couple of weeks to review prevention and treatment of your headaches. A prescription for sublingual Zofran (ondansetron) has been provided should you need further treatment for nausea and vomiting. This tablet dissolved under the tongue and can be taken before swallowing your other oral medications. All discharge instructions reviewed with patient and/or family. Voiced understanding. Scripts Ondansetron (Zofran Odt) 4 Mg Tab.rapdis 4 MG SL Q4H Y for NAUSEA/VOMITING-1ST LINE, #10 TAB Prov: HARPREET CASTLE MD 12/27/17 CORINA HOPPER MD Dec 27, 2017 05:33 HARPREET CASTLE MD Dec 27, 2017 06:46
[2017-12-27 05:45] LABS: BASOPHILS # (AUTO) 0.1 10^3/uL (0.0-0.1); BASOPHILS % (AUTO) 1 % (0-10); EOSINOPHILS # (AUTO) 0.1 10^3/uL (0.0-0.3); EOSINOPHILS % (AUTO) 1 % (0-10); HEMATOCRIT 43 % (35-52); HEMOGLOBIN 14.8 G/DL (11.5-16.0); LYMPHOCYTES # (AUTO) 1.9 X 10^3 (1.0-4.0); LYMPHOCYTES % (AUTO) 20 % (12-44); MEAN CORPUSCULAR HEMOGLOBIN 32 PG (25-34); MEAN CORPUSCULAR HGB CONC 35 G/DL (32-36); MEAN CORPUSCULAR VOLUME 93 FL (80-99); MEAN PLATELET VOLUME 9.4 FL (7.4-10.4); MONOCYTES # (AUTO) 0.5 X 10^3 (0.0-1.0); MONOCYTES % (AUTO) 6 % (0-12); NEUTROPHILS # (AUTO) 7.2 X 10^3 (1.8-7.8); NEUTROPHILS % (AUTO) 74 % (42-75); PLATELET COUNT 199 10^3/uL (130-400); RED CELL DISTRIBUTION WIDTH 12.4 % (10.0-14.5); WHITE BLOOD COUNT 9.8 10^3/uL (4.3-11.0)
[2017-12-27 05:58] LABS: ALANINE AMINOTRANSFERASE 16 U/L (0-55); ALBUMIN 4.6 GM/DL (3.2-4.5); ALKALINE PHOSPHATASE 67 U/L (40-136); BILIRUBIN,TOTAL 0.4 MG/DL (0.1-1.0); BUN/CREATININE RATIO 19; CALCIUM 9.5 MG/DL (8.5-10.1); CARBON DIOXIDE 29 MMOL/L (21-32); CHLORIDE 100 MMOL/L (98-107); CREATININE SERUM 0.69 MG/DL (0.60-1.30); GFR ESTIMATED > 60; GLUCOSE 130 MG/DL (70-105); POTASSIUM 4.4 MMOL/L (3.6-5.0); SODIUM 141 MMOL/L (135-145); TOTAL PROTEIN 7.8 GM/DL (6.4-8.2)
--- NOTE | 2017-12-27 06:30 | Diagnostic Imaging Report ---
PROCEDURE: CT head and CT cervical spine without contrast. TECHNIQUE: Multiple contiguous axial images were obtained through the brain and cervical spine without the use of intravenous contrast. Sagittal and coronal reformations through the cervical spine were then performed. INDICATION: Migraine, head pain, resulted in fall. Head CT compared 10/02/2017. Cervical spine CT correlated with CT angio neck study 10/02/2017. CT head: There is no intracranial hemorrhage. There is no hydrocephalus, edema, mass or mass effect. No findings of focal or generalized cerebral edema. The basilar cisterns patent, the sulci were non-effaced. The orbits, sinuses and calvarium within normal limits. There has been no change. CT cervical spine: Degenerative disc space narrowing and mild endplate osteophytes on a chronic basis are stable. There is straightening of curvature without listhesis. Vertebral statures unremarkable and no acute or suspicious endplate irregularity. No paravertebral mass, hemorrhage or fluid collection. No evidence for fracture. IMPRESSION: CT head: Stable unremarkable head CT cervical spine: 1. Degenerative changes without fracture, listhesis or substantial stenosis. 2. Not mentioned above, carotid atherosclerotic vascular calcifications. Dictated by: Dictated on workstation # [id number]
[2017-12-27] MEDS ORDERED: METOCLOPRAMIDE INJ 10 MG/2 ML (REGLAN) IVP ONE (07:00)
[2017-12-27] MEDS ORDERED: NORTRIPTYLINE 10 MG (PAMELOR) CAP PO ONE (07:00)
[2017-12-27] MEDS ORDERED: diphenhydrAMINE 25 MG TAB (BENADRYL) PO ONE (07:00)
[2017-12-27] MEDS ORDERED: ONDA4TAB8 SL (07:36)
[2017-12-27 07:43] VITALS: BP 147/78
== END 2017-12-27 07:43 | disposition home or self-care (01) ==
LOC: EDUNIT# 05:08 → ER 05:09
DX: R51 Headache (principal); R11.2 Nausea with vomiting, unspecified; Z90.89 Acquired absence of other organs; Z90.49 Acquired absence of other specified parts of digestive tract; Z87.891 Personal history of nicotine dependence; Z88.0 Allergy status to penicillin; Z88.2 Allergy status to sulfonamides; Z88.5 Allergy status to narcotic agent; Z88.1 Allergy status to other antibiotic agents; Z88.8 Allergy status to other drugs, medicaments and biological substances; Z91.041 Radiographic dye allergy status; W18.30XA Fall on same level, unspecified, initial encounter
CPT/HCPCS: 36415; 70450; 72125; 80053; 85025; 86141; 96374; 96375

== ENCOUNTER 2019-03-28 18:07 | Inpatient (IN) | payer SELFPAY ==
[~2019-03-28] VITALS: Ht 162.6 cm; Wt 98.9 kg
[~2019-03-28 18:07] MED LIST changes: +ONDA4TAB8 SL
[2019-03-28] MEDS ORDERED: RT-ALBUTEROL/IPRATROPIUM 3 ML (DUONEB) VIAL ONE ×2 (18:50→18:59)
[2019-03-28] MEDS ORDERED: NS IV 1000 ML 1,000 ML IV SCH ×2 (19:03→20:28)
[2019-03-28 19:14] LABS: BASOPHILS # (AUTO) 0.1 10^3/uL (0.0-0.1); BASOPHILS % (AUTO) 1 % (0-10); EOSINOPHILS # (AUTO) 0.2 10^3/uL (0.0-0.3); EOSINOPHILS % (AUTO) 2 % (0-10); HEMATOCRIT 46 % (35-52); HEMOGLOBIN 14.6 G/DL (11.5-16.0); LYMPHOCYTES # (AUTO) 2.1 X 10^3 (1.0-4.0); LYMPHOCYTES % (AUTO) 27 % (12-44); MEAN CORPUSCULAR HEMOGLOBIN 30 PG (25-34); MEAN CORPUSCULAR HGB CONC 32 G/DL (32-36); MEAN CORPUSCULAR VOLUME 95 FL (80-99); MEAN PLATELET VOLUME 9.9 FL (7.4-10.4); MONOCYTES # (AUTO) 0.7 X 10^3 (0.0-1.0); MONOCYTES % (AUTO) 9 % (0-12); NEUTROPHILS # (AUTO) 4.7 X 10^3 (1.8-7.8); NEUTROPHILS % (AUTO) 61 % (42-75); PLATELET COUNT 217 10^3/uL (130-400); RED CELL DISTRIBUTION WIDTH 13.3 % (10.0-14.5); WHITE BLOOD COUNT 7.7 10^3/uL (4.3-11.0)
[2019-03-28 19:21] LABS: PROTHROMBIN TIME PATIENT 13.9 SEC (12.2-14.7)
[2019-03-28 19:27] LABS: ALANINE AMINOTRANSFERASE 14 U/L (0-55); ALBUMIN 4.3 GM/DL (3.2-4.5); ALKALINE PHOSPHATASE 76 U/L (40-136); BILIRUBIN,TOTAL 0.3 MG/DL (0.1-1.0); BUN/CREATININE RATIO 11; CARBON DIOXIDE 32 MMOL/L (21-32); CHLORIDE 101 MMOL/L (98-107); CREATININE SERUM 0.81 MG/DL (0.60-1.30); GFR ESTIMATED > 60; GLUCOSE 131 MG/DL (70-105); SODIUM 143 MMOL/L (135-145)
[2019-03-28 19:37] LABS: BILIRUBIN,URINE NEGATIVE (NEGATIVE); CLARITY,URINE CLEAR; COLOR,URINE YELLOW; GLUCOSE, URINE (UA) NEGATIVE (NEGATIVE); KETONES,URINE NEGATIVE (NEGATIVE); LEUKOCYTE ESTERASE ,URINE NEGATIVE (NEGATIVE); NITRITE,URINE NEGATIVE (NEGATIVE); PH,URINE 6 (5-9); PROTEIN,URINE NEGATIVE (NEGATIVE); UROBILINOGEN,URINE NORMAL (NORMAL)
[2019-03-28] MEDS ORDERED: methylPREDNISolone 125 MG (Solu-MEDROL) VIAL IVP ONE (19:45)
[2019-03-28 19:54] LABS: BACTERIA,URINE FEW /HPF
--- NOTE | 2019-03-28 20:22 | Diagnostic Imaging Report ---
INDICATION: Shortness of air x2 days. TECHNIQUE: Two-view chest, 8:14 p.m. CORRELATION STUDY: None. FINDINGS: Heart size is borderline enlarged. Prominent appearance about the central pulmonary arteries can be reflective of underlying pulmonary arterial hypertension. Likely minimal atelectasis at the lung bases. No significant infiltrate. Visualized osseous structures are unremarkable. IMPRESSION: 1. Borderline cardiac enlargement without evidence of overt failure. There may be minimal basilar atelectasis. Dictated by: Dictated on workstation # [id number]
--- NOTE | 2019-03-28 20:27 | ED Respiratory ---
General Chief Complaint: Respiratory Problems Stated Complaint: SOA Nursing Triage Note: PT AMB TO RM 7 WITH COMPLAINT OF SOA. PT WAS SENT OUT BY [facility] FOR SATS IN THE 80s. STATES SHE HAS HAD SOA FOR THE LAST FEW DAYS WITH FEVERS AND COUGH. History of Present Illness Date Seen by Provider: Mar 28, 2019 Time Seen by Provider: 18:55 Initial Comments 54-year-old male female presents for shortness of air. She was referred here by [facility] earlier today for her SaO2 was in the low 80s. She reports she had to wait for her come home to bring her. She's been continuing to use her albuterol 2 puffs every 4 hours. Shortness of air has not improved. Initial SaO2 was 75% on room air, he quickly improved to upper 80s and 90 percents with O2 per 4 L nasal cannula. She denies any recent use of steroids for her COPD. Timing/Duration: this morning Prior Episodes/Possible Cause: occasional episodes Associated Symptoms: No chest pain/soreness; cough; No dizziness, No earache, No facial pain, No fever/chills, No headache, No lightheadedness; muscle aches; No nasal congestion, No nasal drainage; shortness of breath; No sinus infection, No sore throat; wheezing Allergies and Home Medications Allergies Coded Allergies: Penicillins (Verified Allergy, Unknown, 07/05/17) Sulfa (Sulfonamide Antibiotics) (Verified Allergy, Unknown, 07/05/17) codeine (Verified Allergy, Unknown, 07/05/17) hydrocodone (Verified Allergy, Unknown, 07/05/17) levofloxacin (Verified Allergy, Unknown, 07/05/17) promethazine (Verified Allergy, Unknown, 07/05/17) Uncoded Allergies: IV CONTRAST (Allergy, Mild, 10/02/17) Home Medications Amlodipine/Benazepril 1 Cap Cap, 1 CAP PO DAILY, (Reported) Ondansetron 4 Mg Tab.rapdis, 4 MG SL Q4H PRN for NAUSEA/VOMITING-1ST LINE Prescribed by: HARPREET BOB on 12/27/17 0736 [ibuprofen] , for PAIN-MILD, (Reported) Patient Home Medication List Home Medication List Reviewed: Yes Review of Systems Review of Systems Constitutional: no symptoms reported, see HPI Respiratory: see HPI, cough, dyspnea on exertion, short of breath All Other Systems Reviewed Negative Unless Noted: Yes Past Eogzslj-Wcmmug-Khwsre Hx Past Med/Social Hx: Reviewed Nursing Past Med/Soc Hx Patient Social History Alcohol Use: Denies Use Recreational Drug Use: No Smoking Status: Former Smoker Type Used: Cigarettes Former Smoker, Quit: Oct 17, 2017 2nd Hand Smoke Exposure: No Recent Foreign Travel: No Contact w/Someone Who Travel: No Recent Infectious Disease Expo: No Recent Hopitalizations: No Immunizations Up To Date Tetanus Booster (TDap): Unknown PED Vaccines UTD: Yes Seasonal Allergies Seasonal Allergies: No Past Medical History Surgeries: Yes Appendectomy, Gallbladder, Orthopedic, Tonsillectomy Respiratory: Yes Asthma, Sleep Apnea, COPD Currently Using CPAP: Yes Cardiac: No Neurological: No Genitourinary: No Gastrointestinal: No Musculoskeletal: No Endocrine: No HEENT: No Cancer: No Psychosocial: No Integumentary: No Blood Disorders: No Physical Exam Vital Signs - First Documented 03/28/19 18:42 Temp 98.0 Pulse 71 Resp 18 B/P (MAP) 143/80 (101) Pulse Ox 95 O2 Delivery Nasal Cannula O2 Flow Rate 6.00 Capillary Refill : Less Than 3 Seconds Height: 5'4.00" Weight: 212lbs. 0oz. 96.630064at; BMI Method:Stated General Appearance: WD/WN, mild distress Eyes: Bilateral Eye Normal Inspection, Bilateral Eye PERRL, Bilateral Eye EOMI HEENT: PERRL/EOMI, normal ENT inspection, TMs normal, pharynx normal Neck: non-tender, full range of motion, supple, normal inspection Respiratory: chest non-tender, decreased breath sounds, wheezing Cardiovascular: normal peripheral pulses, regular rate, rhythm Gastrointestinal: normal bowel sounds, non tender, soft Extremities: normal range of motion, non-tender, normal inspection, no pedal edema, no calf tenderness, normal capillary refill Neurologic/Psychiatric: no motor/sensory deficits, alert, normal mood/affect, oriented x 3 Skin: normal color, warm/dry Focused Exam Lactate Level 03/28/19 18:55: Lactic Acid Level 1.54 Lactic Acid Level Laboratory Tests Test 03/28/19 18:55 Lactic Acid Level 1.54 MMOL/L (0.50-2.00) Progress/Results/Core Measures Suspected Sepsis Recent Fever Within 48 Hours: No Infection Criteria Present: None New/Unexplained Altered Menta: No Sepsis Screen: No Definite Risk SIRS Temperature:98.0 Pulse: 71 Respiratory Rate: 18 Laboratory Tests 03/28/19 18:55: White Blood Count 7.7 Blood Pressure 143 /80 Mean: 101 03/28/19 18:55: Lactic Acid Level 1.54 Laboratory Tests 03/28/19 18:55: Creatinine 0.81, INR Comment 1.0, Platelet Count 217, Total Bilirubin 0.3 Results/Orders Lab Results Laboratory Tests Test 03/28/19 18:55 03/28/19 19:33 Range/Units White Blood Count 7.7 4.3-11.0 10^3/uL Red Blood Count 4.87 4.35-5.85 10^6/uL Hemoglobin 14.6 11.5-16.0 G/DL Hematocrit 46 35-52 % Mean Corpuscular Volume 95 80-99 FL Mean Corpuscular Hemoglobin 30 25-34 PG Mean Corpuscular Hemoglobin Concent 32 32-36 G/DL Red Cell Distribution Width 13.3 10.0-14.5 % Platelet Count 217 130-400 10^3/uL Mean Platelet Volume 9.9 7.4-10.4 FL Neutrophils (%) (Auto) 61 42-75 % Lymphocytes (%) (Auto) 27 12-44 % Monocytes (%) (Auto) 9 0-12 % Eosinophils (%) (Auto) 2 0-10 % Basophils (%) (Auto) 1 0-10 % Neutrophils # (Auto) 4.7 1.8-7.8 X 10^3 Lymphocytes # (Auto) 2.1 1.0-4.0 X 10^3 Monocytes # (Auto) 0.7 0.0-1.0 X 10^3 Eosinophils # (Auto) 0.2 0.0-0.3 10^3/uL Basophils # (Auto) 0.1 0.0-0.1 10^3/uL Prothrombin Time 13.9 12.2-14.7 SEC INR Comment 1.0 0.8-1.4 Activated Partial Thromboplast Time 31 24-35 SEC Sodium Level 143 135-145 MMOL/L Potassium Level 4.0 3.6-5.0 MMOL/L Chloride Level 101 98-107 MMOL/L Carbon Dioxide Level 32 21-32 MMOL/L Anion Gap 10 5-14 MMOL/L Blood Urea Nitrogen 9 7-18 MG/DL Creatinine 0.81 0.60-1.30 MG/DL Estimat Glomerular Filtration Rate > 60 BUN/Creatinine Ratio 11 Glucose Level 131 H 70-105 MG/DL Lactic Acid Level 1.54 0.50-2.00 MMOL/L Calcium Level 9.0 8.5-10.1 MG/DL Corrected Calcium 8.8 8.5-10.1 MG/DL Total Bilirubin 0.3 0.1-1.0 MG/DL Aspartate Amino Transf (AST/SGOT) 12 5-34 U/L Alanine Aminotransferase (ALT/SGPT) 14 0-55 U/L Alkaline Phosphatase 76 40-136 U/L Total Protein 7.0 6.4-8.2 GM/DL Albumin 4.3 3.2-4.5 GM/DL Urine Color YELLOW Urine Clarity CLEAR Urine pH 6 5-9 Urine Specific [place] 1.025 H 1.016-1.022 Urine Protein NEGATIVE NEGATIVE Urine Glucose (UA) NEGATIVE NEGATIVE Urine Ketones NEGATIVE NEGATIVE Urine Nitrite NEGATIVE NEGATIVE Urine Bilirubin NEGATIVE NEGATIVE Urine Urobilinogen NORMAL NORMAL MG/DL Urine Leukocyte Esterase NEGATIVE NEGATIVE Urine RBC (Auto) NEGATIVE NEGATIVE Urine RBC NONE /HPF Urine WBC NONE /HPF Urine Squamous Epithelial Cells 2-5 /HPF Urine Crystals NONE /LPF Urine Bacteria FEW H /HPF Urine Casts NONE /LPF Urine Mucus NEGATIVE /LPF Urine Culture Indicated NO My Orders Orders - CARLITO MCKINNEY Cbc With Automated Diff (03/28/19 19:03) Comprehensive Metabolic Panel (03/28/19 19:03) Blood Culture (03/28/19 19:03) Sputum Culture (03/28/19:03) Urinalysis (03/28/19:) Urine Culture (03/28/19:03) Protime With Inr (03/28/19:) Partial Thromboplastin Time (03/28/19:03) Ed Iv/Invasive Line Start (03/28/19:) O2 (03/28/19:03) Ns Iv 1000 Ml (Sodium Chloride 0.9%) (03/28/19 19:03) Lactic Acid Analyzer (03/28/19 19:03) Chest Pa/Lat (2 View) (03/28/19:) Albuterol/Ipra Inhalation Soln (Duoneb I (03/28/19 18:59) Methylprednisolone Sod Succ (Solu-Medrol (03/28/19 19:45) Ed Iv/Invasive Line Start (03/28/19 20:28) Ns Iv 1000 Ml (Sodium Chloride 0.9%) (03/28/19 20:28) Medications Given in ED Current Medications Medications Dose Ordered Sig/Ventura Route Start Time Stop Time Status Last Admin Dose Admin Albuterol/ Ipratropium 3 ml STK-MED ONCE .ROUTE 03/28/19 18:50 03/28/19 18:55 DC 03/28/19 18:57 3 ML Albuterol/ Ipratropium 3 ml STK-MED ONCE .ROUTE 03/28/19 18:59 03/28/19 19:04 DC 03/28/19 19:07 3 ML Methylprednisolone Sodium Succinate 125 mg ONCE ONCE IVP 03/28/19 19:45 03/28/19 19:46 DC 03/28/19 19:52 125 MG Vital Signs/I&O 03/28/19 03/28/19 03/28/19 03/28/19 18:42 18:48 18:57 19:07 Temp 98.0 Pulse 71 Resp 18 B/P (MAP) 143/80 (101) Pulse Ox 95 75 97 95 O2 Delivery Nasal Cannula Nasal Cannula Nasal Cannula Nasal Cannula O2 Flow Rate 6.00 6.00 5.00 4.00 Capillary Refill : Less Than 3 Seconds Blood Pressure Mean: 101 Progress Note : Time: 18:55 Progress Note Patient seen and evaluated, O2 per nasal cannula at 3-4 L to maintain sats greater than 90%. We'll have RT see patient for DuoNeb treatments. Labs drawn. Normal saline 1 L per IV. 1919 after 2 DuoNeb treatments, there is improved air movement and less wheezing. The patient does report less shortness of air. Will obtain a chest x- ray. We'll give Solu-Medrol 125 mg IV. 1944 called to room after the patient was given Solu-Medrol, reports skin feeling tight and anxiety, she reports this in the past with Solu-Medrol. She proceeded to give herself Benadryl 50 mg orally prior to our arrival in the room. Vital signs remained stable, SaO2 92%. No rash or dyspnea. 1999 patient reports symptoms from Solu-Medrol have improved. Encouraged that she tells future providers that she has a reaction to Solu-Medrol. 2029 chest x-ray essentially normal. Discussed findings from labs and her ass essment with the patient, recommended admission for overnight observation. Patient was agreeable with this treatment plan. [address] Penn by phone, agreed to admit patient for observation. Diagnostic Imaging Diagonstic Imaging: Xray Plain Films/CT/US/NM/MRI: chest Comments NAME: WESLEY CUELLO [facility] REC#: [id number] PT STATUS: REG ER : 1965 PHYSICIAN: CARLITO MCKINNEY ADMIT DATE: 03/28/19/ER Draft Date of Exam:03/28/19 CHEST PA/LAT (2 VIEW) INDICATION: Shortness of air x2 days. TECHNIQUE: Two-view chest, 8:14 p.m. CORRELATION STUDY: None. FINDINGS: Heart size is borderline enlarged. Prominent appearance about the central pulmonary arteries can be reflective of underlying pulmonary arterial hypertension. Likely minimal atelectasis at the lung bases. No significant infiltrate. Visualized osseous structures are unremarkable. IMPRESSION: 1. Borderline cardiac enlargement without evidence of overt failure. There may be minimal basilar atelectasis. Dictated on workstation # [id number] Dict: 03/28/192017 Trans: 03/28/192020 [id number] Interpreted by: LORNA BAUGH DO Electronically signed by: Reviewed: Reviewed by Me Departure Impression Primary Impression: COPD exacerbation Disposition: ADMITTED INPATIENT Condition: Stable Admissions Decision to Admit Reason: Admit from ER (General) Decision to Admit/Date: Mar 28, 2019 Time/Decision to Admit Time: 21:00 Departure-Patient Inst. Referrals: [facility] (PCP) Primary Care Physician AUBREE CUELLO (Family) Primary Care Physician Copy Copies To 1: CANDI CARVALHO MD, AMY ARNP Mar 28, 2019 20:27
[2019-03-28 22:00] VITALS: BP 137/87
[2019-03-28] MEDS ORDERED: diphenhydrAMINE 50 MG/ML INJ (BENADRYL) IV PRN (22:30)
[2019-03-28] MEDS ORDERED: ONDANSETRON 4 MG/2 ML (SDV) Z0FRAN IV PRN (22:30)
[2019-03-28] MEDS ORDERED: ACETAMINOPHEN 325 MG TABLET PO PRN (22:30)
[2019-03-28 23:30] VITALS: BP 164/76
[2019-03-28] MEDS: NS IV 1000 ML 1,000 ML IV SCH (23:30)
[2019-03-29] MEDS ORDERED: RT-ALBUTEROL/IPRATROPIUM 3 ML (DUONEB) VIAL INH SCH (02:00)
[2019-03-29] MEDS: RT-ALBUTEROL/IPRATROPIUM 3 ML (DUONEB) VIAL IH SCH ×5 (02:55→18:54)
[2019-03-29] MEDS: NS IV 1000 ML 1,000 ML IV SCH (03:25)
[2019-03-29 04:00] VITALS: BP 132/60
[2019-03-29] MEDS: DEXAMETHASONE 10 MG/ML (DECADRON) 1 ML VIAL IV SCH ×3 (06:20→21:14)
[2019-03-29 06:36] LABS: BASOPHILS % (AUTO) 0 % (0-10); EOSINOPHILS % (AUTO) 0 % (0-10); HEMATOCRIT 46 % (35-52); HEMOGLOBIN 14.6 G/DL (11.5-16.0); LYMPHOCYTES # (AUTO) 0.6 X 10^3 (1.0-4.0); LYMPHOCYTES % (AUTO) 9 % (12-44); MEAN CORPUSCULAR HEMOGLOBIN 30 PG (25-34); MEAN CORPUSCULAR HGB CONC 32 G/DL (32-36); MEAN CORPUSCULAR VOLUME 94 FL (80-99); MEAN PLATELET VOLUME 9.7 FL (7.4-10.4); MONOCYTES % (AUTO) 1 % (0-12); NEUTROPHILS # (AUTO) 5.5 X 10^3 (1.8-7.8); NEUTROPHILS % (AUTO) 90 % (42-75); PLATELET COUNT 212 10^3/uL (130-400); RED CELL DISTRIBUTION WIDTH 13.1 % (10.0-14.5); WHITE BLOOD COUNT 6.1 10^3/uL (4.3-11.0)
[2019-03-29 06:49] LABS: ALANINE AMINOTRANSFERASE 19 U/L (0-55); ALBUMIN 4.1 GM/DL (3.2-4.5); ALKALINE PHOSPHATASE 71 U/L (40-136); BILIRUBIN,TOTAL 0.3 MG/DL (0.1-1.0); BUN/CREATININE RATIO 16; CALCIUM 9.1 MG/DL (8.5-10.1); CARBON DIOXIDE 29 MMOL/L (21-32); CHLORIDE 101 MMOL/L (98-107); CREATININE SERUM 0.62 MG/DL (0.60-1.30); GFR ESTIMATED > 60; GLUCOSE 135 MG/DL (70-105); POTASSIUM 4.7 MMOL/L (3.6-5.0); SODIUM 141 MMOL/L (135-145)
[2019-03-29 07:26] LABS: LYMPHOCYTES % (MANUAL) 7 %; MONOCYTES % (MANUAL) 1 %; NEUTROPHILS % (MANUAL) 92 %
[2019-03-29 08:00] VITALS: BP 137/73
[2019-03-29] MEDS ORDERED: AMLO1CAP7 PO (10:19)
[2019-03-29] MEDS ORDERED: ACET-2267 PO (10:19)
[2019-03-29] MEDS ORDERED: IBUP-30 PO (10:19)
[2019-03-29] MEDS ORDERED: ASCO-262 PO (10:32)
[2019-03-29] MEDS ORDERED: DIPH25CA79 PO (10:32)
[2019-03-29] MEDS ORDERED: RT-ALBUINH INH (10:53)
[2019-03-29] MEDS ORDERED: ALBU2.5V4 NEB (10:53)
[2019-03-29] MEDS ORDERED: BUDE10.2 IH (10:53)
[2019-03-29] MEDS ORDERED: ONDA8TAB6 PO (10:54)
--- NOTE | 2019-03-29 10:54 | NUR ---
SPOKE WITH THE PATIENT ABOUT HER MEDICATIONS. SHE LISTED WHAT SHE IS TAKING AND I VERIFIED WITH THE EXT MED HX AND CALLED [facility]. HER AMLODIPINE/BENAZEPRIL 5-10 WAS LAST FILLED #30 FOR 30 DAYS 03-06-19 - SHE STATES THIS HAS BEEN INCREASED TO 2 CAPSULES DAILY. IN ADDITION TO WHAT IS SHOWN ON THE EXT MED HX [facility] FILLED: 03-16-19 VENTOLIN 2 PUFFS Q4H PRN 02-23-19 SYMBICORT 160 2 PUFFS BID 2015 ALBUTEROL NEBULIZER SOLUTION (TAKES NEEDED) 2015 ZOFRAN 8MG Q8H PRN (STATES SHE TAKES FOR MIGRAINES WITH TWO OTHER MEDS) SHE TAKES THE FOLLOWING OTC: VITAMIN C DAILY TYLENOL PRN IBU PRN BENADRYL 2 PRN (TAKES ALONG WITH ZOFRAN AND ONE OTHER MED FOR MIGRAINES) SHE STATES SHE USES THREE MEDICATIONS TOGETHER FOR MIGRAINES BUT DOES NOT USE THEM OFTEN. SHE TAKES 2 BENADRYL, ZOFRAN, AND ONE OTHER SHE IS NOT SURE THE NAME OF. SHE THINKS IT IS AN ANTIDEPRESSANT AND STATES SHE HAS NOT FILLED IT FOR QUITE SOME TIME BECAUSE SHE HAS ONLY NEEDED IT TWICE IN THE PAST YEAR OR SO. I CALLED [facility] BUT THEY DID NOT SEE ANYTHING IN HER PAST FILLS THAT FITS THAT DESCRIPTION. I HAD A LIST SENT OVER FROM MEDICAL RECORDS AND THE ONLY MEDICATION ON THAT LIST THE PATIENT DID NOT ADDRESS WITH ME WAS REGLAN BUT [facility] DID NOT HAVE IT ON RECORD. AT THIS TIME I HAVE NOT ADDED THIS THIRD MEDICATION TO THE MED REC I AM NOT ABLE TO VERIFY WHAT IT IS. THE PATIENT STATES SHE HAS IT AT HOME AND DOES NOT NEED IT OFTEN.
[2019-03-29 12:00] VITALS: BP 156/75
--- NOTE | 2019-03-29 13:35 | NUR ---
CM/SS attempted to respond to consult for SS. Patient was unavailable at this time. Will attempt visit later.
[2019-03-29 15:24] VITALS: BP 138/73
--- NOTE | 2019-03-29 17:59 | History & Physicial (CHS) ---
HPI History of Present Illness: 54 yo F that presented to ER with increasing shortness of breath after cleaning out vacuum. States that she was around alot of dust particles. She did her breathing treatments 2x without much improvement and decided that she needed to go to the ER. She has not been hospitalized for her COPD before, denies any intubations. No fever or chills. No sure about sick contacts as she states that she works at the [employer] and is around alot of people. She has not missed any of her breathing treatments. No chest pain or h/o CAD. Source: patient Exam Limitations: no limitations Date seen by provider: Mar 29, 2019 Time Seen by Provider: 10:30 Attending Physician Carrol Penn MD [facility] Consult Date of Admission Mar 28, 2019 at 21:00 Home Medications Home Medications Reviewed patient Home Medication Reconciliation performed by pharmacy medication reconciliations manufacturing production technician and/or nursing. Patients Allergies have been reviewed. Allergies Coded Allergies: Penicillins (Verified Allergy, Unknown, 07/05/17) Sulfa (Sulfonamide Antibiotics) (Verified Allergy, Unknown, 07/05/17) codeine (Verified Allergy, Unknown, 07/05/17) hydrocodone (Verified Allergy, Unknown, 07/05/17) levofloxacin (Verified Allergy, Unknown, 07/05/17) promethazine (Verified Allergy, Unknown, 07/05/17) Uncoded Allergies: IV CONTRAST (Allergy, Mild, 10/02/17) INX-Acryny-Jarzkj Hx Patient Social History Alcohol Use: Denies Use Recreational Drug Use: No Smoking Status: Former Smoker Type Used: Cigarettes 2nd Hand Smoke Exposure: No Recent Foreign Travel: No Contact w/other who traveled: No Recent Hopitalizations: No Recent Infectious Disease Expo: No Immunizations Up To Date Tetanus Booster (TDap): Unknown Date of Pneumonia Vaccine: Oct 18, 2013 Past Medical History COPD HTN Family Medical History Significant Family History: No Pertinent Family Hx Family History: Diabetes mellitus 19 MOTHER G8 BROTHER G8 SISTER FH: COPD (chronic obstructive pulmonary disease) 19 MOTHER FH: esophageal cancer G8 BROTHER Hypertension 19 MOTHER Myocardial infarction 19 MOTHER Review of Systems (CHC) Constitutional: no symptoms reported; No chills, No fever, No malaise EENTM: hoarseness, mouth pain, throat pain; No nose congestion Respiratory: cough, dyspnea on exertion; No orthopnea Cardiovascular: no symptoms reported; No chest pain, No edema, No palpitations Gastrointestinal: no symptoms reported; No abdominal pain, No constipation, No diarrhea, No loss of appetite, No nausea, No vomiting Genitourinary: no symptoms reported; No dysuria, No frequency, No hematuria : No Musculoskeletal: no symptoms reported; No back pain, No joint pain, No muscle pain Skin: no symptoms reported; No lesions, No rash Psychiatric/Neurological: No Symptoms Reported; Denies Headache Reviewed Test Results Reviewed Test Results Lab Laboratory Tests Test 03/28/19 18:55 03/28/19 19:33 03/29/19 06:11 Range/Units White Blood Count 7.7 6.1 4.3-11.0 10^3/uL Red Blood Count 4.87 4.90 4.35-5.85 10^6/uL Hemoglobin 14.6 14.6 11.5-16.0 G/DL Hematocrit 46 46 35-52 % Mean Corpuscular Volume 95 94 80-99 FL Mean Corpuscular Hemoglobin 30 30 25-34 PG Mean Corpuscular Hemoglobin Concent 32 32 32-36 G/DL Red Cell Distribution Width 13.3 13.1 10.0-14.5 % Platelet Count 217 212 130-400 10^3/uL Mean Platelet Volume 9.9 9.7 7.4-10.4 FL Neutrophils (%) (Auto) 61 90 H 42-75 % Lymphocytes (%) (Auto) 27 9 L 12-44 % Monocytes (%) (Auto) 9 1 0-12 % Eosinophils (%) (Auto) 2 0 0-10 % Basophils (%) (Auto) 1 0 0-10 % Neutrophils # (Auto) 4.7 5.5 1.8-7.8 X 10^3 Lymphocytes # (Auto) 2.1 0.6 L 1.0-4.0 X 10^3 Monocytes # (Auto) 0.7 0.0 0.0-1.0 X 10^3 Eosinophils # (Auto) 0.2 0.0 0.0-0.3 10^3/uL Basophils # (Auto) 0.1 0.0 0.0-0.1 10^3/uL Prothrombin Time 13.9 12.2-14.7 SEC INR Comment 1.0 0.8-1.4 Activated Partial Thromboplast Time 31 24-35 SEC Sodium Level 143 141 135-145 MMOL/L Potassium Level 4.0 4.7 3.6-5.0 MMOL/L Chloride Level 101 101 98-107 MMOL/L Carbon Dioxide Level 32 29 21-32 MMOL/L Anion Gap 10 11 5-14 MMOL/L Blood Urea Nitrogen 9 10 7-18 MG/DL Creatinine 0.81 0.62 0.60-1.30 MG/DL Estimat Glomerular Filtration Rate > 60 > 60 BUN/Creatinine Ratio 11 16 Glucose Level 131 H 135 H 70-105 MG/DL Lactic Acid Level 1.54 0.50-2.00 MMOL/L Calcium Level 9.0 9.1 8.5-10.1 MG/DL Corrected Calcium 8.8 9.0 8.5-10.1 MG/DL Total Bilirubin 0.3 0.3 0.1-1.0 MG/DL Aspartate Amino Transf (AST/SGOT) 12 13 5-34 U/L Alanine Aminotransferase (ALT/SGPT) 14 19 0-55 U/L Alkaline Phosphatase 76 71 40-136 U/L Total Protein 7.0 7.0 6.4-8.2 GM/DL Albumin 4.3 4.1 3.2-4.5 GM/DL Urine Color YELLOW Urine Clarity CLEAR Urine pH 6 5-9 Urine Specific [place] 1.025 H 1.016-1.022 Urine Protein NEGATIVE NEGATIVE Urine Glucose (UA) NEGATIVE NEGATIVE Urine Ketones NEGATIVE NEGATIVE Urine Nitrite NEGATIVE NEGATIVE Urine Bilirubin NEGATIVE NEGATIVE Urine Urobilinogen NORMAL NORMAL MG/DL Urine Leukocyte Esterase NEGATIVE NEGATIVE Urine RBC (Auto) NEGATIVE NEGATIVE Urine RBC NONE /HPF Urine WBC NONE /HPF Urine Squamous Epithelial Cells 2-5 /HPF Urine Crystals NONE /LPF Urine Bacteria FEW H /HPF Urine Casts NONE /LPF Urine Mucus NEGATIVE /LPF Urine Culture Indicated NO Neutrophils % (Manual) 92 % Lymphocytes % (Manual) 7 % Monocytes % (Manual) 1 % Physical Exam-(CHC) Physical Exam Vital Signs VS - Last 72 Hours, by Label 03/28/19 03/28/19 03/28/19 03/28/19 18:42 18:48 18:57 19:07 Temp 98.0 Pulse 71 Resp 18 B/P (MAP) 143/80 (101) Pulse Ox 95 75 97 95 O2 Delivery Nasal Cannula Nasal Cannula Nasal Cannula Nasal Cannula O2 Flow Rate 6.00 6.00 5.00 4.00 03/28/19 03/28/19 03/28/19 03/28/19 21:49 22:00 22:00 22:15 Temp 97.8 97.8 Pulse 62 66 66 Resp 16 18 18 B/P (MAP) 120/66 (84) 137/87 (104) 137/87 Pulse Ox 95 93 93 O2 Delivery Room Air Nasal Cannula Nasal Cannula Nasal Cannula O2 Flow Rate 3.00 3.00 3.00 03/28/19 03/28/19 03/28/19 03/28/19 22:51 23:07 23:27 23:30 Temp 98.4 Pulse 78 71 80 Resp 20 B/P (MAP) 164/76 (105) Pulse Ox 91 91 90 O2 Delivery Nasal Cannula Nasal Cannula O2 Flow Rate 3.00 3.00 FiO2 3 03/29/19 03/29/19 03/29/19 03/29/19 01:02 02:55 04:00 06:31 Temp 97.8 Pulse 73 81 Resp 20 B/P (MAP) 132/60 (84) Pulse Ox 90 95 95 O2 Delivery Nasal Cannula Nasal Cannula Nasal Cannula O2 Flow Rate 3.00 3.00 3.00 03/29/19 03/29/19 03/29/19 03/29/19 07:00 08:00 08:00 11:20 Temp 97.8 Pulse 99 92 Resp 18 B/P (MAP) 137/73 (94) Pulse Ox 96 96 92 O2 Delivery Nasal Cannula Nasal Cannula Nasal Cannula O2 Flow Rate 3.00 3.00 3.00 03/29/19 03/29/19 03/29/19 12:00 13:00 15:24 Temp 99.0 98.1 Pulse 77 74 80 Resp 18 18 B/P (MAP) 156/75 (102) 138/73 (94) Pulse Ox 96 92 O2 Delivery Nasal Cannula Nasal Cannula O2 Flow Rate 2.00 2.00 Capillary Refill : Less Than 3 Seconds General Appearance: WD/WN, no apparent distress, obese HEENT: PERRL/EOMI, pharynx normal Neck: non-tender, full range of motion, supple Respiratory: chest non-tender, no respiratory distress, no accessory muscle use, wheezing (end exp) Cardiovascular: normal peripheral pulses, regular rate, rhythm, no edema, no murmur Gastrointestinal: normal bowel sounds, non tender, soft, no organomegaly Back: no CVA tenderness, no vertebral tenderness Extremities: no pedal edema, no calf tenderness, normal capillary refill Neurologic/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 as tested, no motor/sensory deficits, alert, normal mood/affect, oriented x 3 Skin: normal color, warm/dry Lymphatic: no adenopathy Assessment/Plan Assessment/Plan Admission Status: Observation (1) COPD (chronic obstructive pulmonary disease) Status: Acute Assessment & Plan: - MAT protocol, steroids and antibiotics Qualifiers: Qualified Codes: J41.0 - Simple chronic bronchitis (2) Hypoxia Status: Acute Assessment & Plan: - titrate oxygen as tolerated (3) HTN (hypertension) Status: Chronic Assessment & Plan: - Continue home meds Qualifiers: Qualified Codes: I10 - Essential (primary) hypertension Clinical Quality Measures DVT/VTE Risk/Contraindication: Risk Factor Score Per Nursin RFS Level Per Nursing on Admit: 4+=Very High CARROL PENN MD Mar 29, 2019 17:59
[2019-03-29] MEDS ORDERED: MONTELUKAST 10 MG (SINGULAIR) TAB PO NR (18:00)
[2019-03-29 19:38] VITALS: BP 164/81
[2019-03-30] VITALS (7 sets, daily range): BP systolic 102–175; BP diastolic 57–79
[2019-03-30] MEDS: NS IV 1000 ML 1,000 ML IV SCH (00:04)
[2019-03-30] MEDS: RT-ALBUTEROL/IPRATROPIUM 3 ML (DUONEB) VIAL IH SCH ×6 (02:43→22:49)
[2019-03-30 05:50] LABS: BASOPHILS % (AUTO) 0 % (0-10); EOSINOPHILS % (AUTO) 0 % (0-10); HEMATOCRIT 42 % (35-52); HEMOGLOBIN 13.4 G/DL (11.5-16.0); LYMPHOCYTES # (AUTO) 0.7 X 10^3 (1.0-4.0); LYMPHOCYTES % (AUTO) 5 % (12-44); MEAN CORPUSCULAR HEMOGLOBIN 30 PG (25-34); MEAN CORPUSCULAR HGB CONC 32 G/DL (32-36); MEAN CORPUSCULAR VOLUME 95 FL (80-99); MONOCYTES # (AUTO) 0.3 X 10^3 (0.0-1.0); MONOCYTES % (AUTO) 2 % (0-12); NEUTROPHILS # (AUTO) 11.8 X 10^3 (1.8-7.8); NEUTROPHILS % (AUTO) 93 % (42-75); PLATELET COUNT 180 10^3/uL (130-400); RED CELL DISTRIBUTION WIDTH 12.9 % (10.0-14.5); WHITE BLOOD COUNT 12.8 10^3/uL (4.3-11.0)
[2019-03-30] MEDS: DEXAMETHASONE 10 MG/ML (DECADRON) 1 ML VIAL IV SCH ×2 (05:51→14:21)
[2019-03-30 06:27] LABS: BUN/CREATININE RATIO 22; CALCIUM 9.2 MG/DL (8.5-10.1); CARBON DIOXIDE 27 MMOL/L (21-32); CHLORIDE 101 MMOL/L (98-107); CREATININE SERUM 0.69 MG/DL (0.60-1.30); GFR ESTIMATED > 60; GLUCOSE 201 MG/DL (70-105); POTASSIUM 4.2 MMOL/L (3.6-5.0); SODIUM 138 MMOL/L (135-145)
--- NOTE | 2019-03-30 06:55 | NUR ---
PATIENT STATED SHE HAD JUST GOTTEN BACK FROM A WALK W/O O2 AND HAD JUST GOTTEN BACK ON O2 RIGHT BEFORE RT CAME INTO HER ROOM; DUE TO ABOVE O2 SAT O2 WAS DECREASED FROM 3 L TO 2 L NC. WILL CONTINUE TO TITRATE O2 THROUGHOUT THE DAY
[2019-03-30] MEDS: amLODIPine 5 MG (NORVASC) TAB PO SCH (08:05)
[2019-03-30] MEDS: lisINopril 20 MG (PRINIVIL) TABLET PO SCH (08:05)
[2019-03-30] MEDS ORDERED: NON-FORMULARY MEDICATION 1 EA EA (Amlodipine Besylate/Benazepril (Amlodipine-Benazepril 5- PO SCH (09:00)
--- NOTE | 2019-03-30 15:16 | Progress Note (SOAP) ---
Subjective Subjective/Events-last exam Doing well this AM. States that she has been up walking around. Still requiring oxygen at 2L. Tolerating PO diet and ambulation Review of Systems Date Seen by Provider: Mar 30, 2019 Time Seen by Provider: 08:45 Pulmonary: Dyspnea, Cough Cardiovascular: No: Chest Pain, Palpitations, Orthopnea Gastrointestinal: No: Nausea, Vomiting, Abdominal Pain Neurological: No: Weakness, Confusion Focused Exam Lactate Level 03/28/19 18:55: Lactic Acid Level 1.54 Objective Exam Last Set of Vital Signs Vital Signs Date Time Temp Pulse Resp B/P (MAP) Pulse Ox O2 Delivery O2 Flow Rate FiO2 03/30/19 12:06 98.7 74 20 102/69 (80) 95 Nasal Cannula 2.00 03/28/19 23:07 3 Capillary Refill : Less Than 3 Seconds I&O Intake and Output 03/30/19 00:00 Intake Total 4040 ml Output Total 6150 ml Balance -2110 ml Intake Oral 3040 ml IV Total 1000 ml Output Urine Total 6150 ml # Bowel Movements 1 General: Alert, Oriented X3, Cooperative, No Acute Distress HEENT: Mucous Memb Moist/[place] Lungs: Normal Air Movement, Other (end exp wheezing, normal work of breathing) Heart: Regular Rate, No Murmurs Abdomen: Normal Bowel Sounds, Soft, No Tenderness, No Masses Extremities: No Edema, No Tenderness/Swelling Skin: No Rashes, No Breakdown Neuro: Strength at 5/5 X4 Ext, Cranial Nerves 3-12 NL Psych/Mental Status: Mental Status NL, Mood NL Results/Procedures Lab Laboratory Tests 03/30/19 05:39: White Blood Count 12.8H, Red Blood Count 4.47, Hemoglobin 13.4, Hematocrit 42, Mean Corpuscular Volume 95, Mean Corpuscular Hemoglobin 30, Mean Corpuscular Hemoglobin Concent 32, Red Cell Distribution Width 12.9, Platelet Count 180, Mean Platelet Volume 10.0, Neutrophils (%) (Auto) 93H, Lymphocytes (%) (Auto) 5L , Monocytes (%) (Auto) 2, Eosinophils (%) (Auto) 0, Basophils (%) (Auto) 0, Neutrophils # (Auto) 11.8H, Lymphocytes # (Auto) 0.7L, Monocytes # (Auto) 0.3, Eosinophils # (Auto) 0.0, Basophils # (Auto) 0.0, Sodium Level 138, Potassium Level 4.2, Chloride Level 101, Carbon Dioxide Level 27, Anion Gap 10, Blood Urea Nitrogen 15, Creatinine 0.69, Estimat Glomerular Filtration Rate > 60, BUN/Creatinine Ratio 22, Glucose Level 201H, Calcium Level 9.2 Microbiology 03/28/19 Blood Culture - Preliminary, Resulted No growth 03/28/19 Gram Stain - Final, Complete 03/28/19 Sputum Culture - Final, Complete Usual upper respiratory bertin 03/28/19 Urine Culture - Preliminary, Resulted Enterococcus faecalis Assessment/Plan Assessment/Plan Admission Status: Inpatient Order (span 2 midnights) Reason for Inpatient Admission: Requiring increase oxygen and IV steroids (1) COPD (chronic obstructive pulmonary disease) Status: Acute Assessment & Plan: - MAT protocol, steroids and antibiotics 03/30: Switch to PO steroids, encourage ambulation, IS and aerobike Qualifiers: Qualified Codes: J41.0 - Simple chronic bronchitis (2) Hypoxia Status: Acute Assessment & Plan: - titrate oxygen as tolerated (3) HTN (hypertension) Status: Chronic Assessment & Plan: - Continue home meds Qualifiers: Qualified Codes: I10 - Essential (primary) hypertension Clinical Quality Measures DVT/VTE Risk/Contraindication: Risk Factor Score Per Nursin RFS Level Per Nursing on Admit: 4+=Very High CARROL AGUIRRE MD Mar 30, 2019 15:16
--- NOTE | 2019-03-30 15:40 | NUR ---
patient had went for a walk and dropped to 88%; RN stated that she was told to leave patient off O2 to see if her O2 sat would go up. RT came into the room and patient had been off O2 for atleast 15 mins and was at 87%! RT placed patient back on O2 and it took 2 L NC to get O2 sat up to/and above 90% and stay up
[2019-03-30] MEDS: predniSONE 20 MG TAB PO SCH (15:41)
[2019-03-31] VITALS: BP 144/75
[2019-03-31] MEDS: RT-ALBUTEROL/IPRATROPIUM 3 ML (DUONEB) VIAL IH SCH ×4 (01:35→14:50)
[2019-03-31 05:14] LABS: BASOPHILS % (AUTO) 0 % (0-10); EOSINOPHILS % (AUTO) 0 % (0-10); HEMATOCRIT 42 % (35-52); HEMOGLOBIN 13.6 G/DL (11.5-16.0); LYMPHOCYTES # (AUTO) 0.8 X 10^3 (1.0-4.0); LYMPHOCYTES % (AUTO) 5 % (12-44); MEAN CORPUSCULAR HEMOGLOBIN 30 PG (25-34); MEAN CORPUSCULAR HGB CONC 32 G/DL (32-36); MEAN CORPUSCULAR VOLUME 94 FL (80-99); MEAN PLATELET VOLUME 9.8 FL (7.4-10.4); MONOCYTES # (AUTO) 0.4 X 10^3 (0.0-1.0); MONOCYTES % (AUTO) 2 % (0-12); NEUTROPHILS # (AUTO) 15.3 X 10^3 (1.8-7.8); NEUTROPHILS % (AUTO) 93 % (42-75); PLATELET COUNT 205 10^3/uL (130-400); RED CELL DISTRIBUTION WIDTH 13.2 % (10.0-14.5); WHITE BLOOD COUNT 16.5 10^3/uL (4.3-11.0)
[2019-03-31 05:27] LABS: BUN/CREATININE RATIO 26; CALCIUM 9.1 MG/DL (8.5-10.1); CARBON DIOXIDE 29 MMOL/L (21-32); CHLORIDE 98 MMOL/L (98-107); CREATININE SERUM 0.62 MG/DL (0.60-1.30); GFR ESTIMATED > 60; GLUCOSE 142 MG/DL (70-105); POTASSIUM 4.4 MMOL/L (3.6-5.0); SODIUM 137 MMOL/L (135-145)
[2019-03-31] MEDS: predniSONE 20 MG TAB PO SCH (06:26)
[2019-03-31 06:57] VITALS: BP 144/75
[2019-03-31] MEDS: lisINopril 20 MG (PRINIVIL) TABLET PO SCH (08:11)
[2019-03-31] MEDS: amLODIPine 5 MG (NORVASC) TAB PO SCH (08:12)
[2019-03-31 08:31] VITALS: BP 137/66
--- NOTE | 2019-03-31 09:46 | NUR ---
CM/SS spoke with the patient for discharge planning. The patient will require oxygen going home. Patient reports that she should have insurance that began on March 18 through her , they do not have cards yet, he is supposed to get the insurance information and provide it to her. She is also getting information together to apply for fin. assistance. Oxygen set up will be completed with have this information.
[2019-03-31] MEDS: NS IV 1000 ML 1,000 ML IV SCH (10:43)
--- NOTE | 2019-03-31 10:48 | NUR ---
SPO2 DROPPED TO 87% ON ROOM AIR @ REST. REPLACED O2 @ 2 LPM. WALKED PT FOR 2 MINUTES. SPO2 DROPPED TO 88%. INCREASED O2 TO 3 LPM. SPO2 STAYED ABOVE 90% ON 3 LPM WITH EXERTION. Addendum: 03/31/19 at 1128 by PRUDENCIO KOHLI RT Amended: Links added.
--- NOTE | 2019-03-31 11:13 | Discharge Summary ---
Diagnosis/Chief Complaint Date of Admission Mar 30, 2019 at 15:14 Date of Discharge 03/31/2019 Admission Diagnosis Admission Diagnosis See Problem list Discharge Diagnosis See Below Problems/Diagnosis: (1) COPD (chronic obstructive pulmonary disease) Assessment & Plan: - MAT protocol, steroids and antibiotics 03/30: Switch to PO steroids, encourage ambulation, IS and aerobike Qualifiers: Qualified Codes: J41.0 - Simple chronic bronchitis Status: Acute (2) Hypoxia Assessment & Plan: - titrate oxygen as tolerated Status: Acute (3) HTN (hypertension) Assessment & Plan: - Continue home meds Qualifiers: Qualified Codes: I10 - Essential (primary) hypertension Status: Chronic Chief Complaint/HPI Chief Complaint/HPI 54 yo F that presented to ER with increasing shortness of breath after cleaning out vacuum. States that she was around alot of dust particles. She did her breathing treatments 2x without much improvement and decided that she needed to go to the ER. She has not been hospitalized for her COPD before, denies any intubations. No fever or chills. No sure about sick contacts as she states that she works at the [employer] and is around alot of people. She has not missed any of her breathing treatments. No chest pain or h/o CAD. Discharge Summary-Simple/Stand Consultations Discharge Physical Examination Allergies: Coded Allergies: Penicillins (Verified Allergy, Unknown, 07/05/17) Sulfa (Sulfonamide Antibiotics) (Verified Allergy, Unknown, 07/05/17) codeine (Verified Allergy, Unknown, 07/05/17) hydrocodone (Verified Allergy, Unknown, 07/05/17) levofloxacin (Verified Allergy, Unknown, 07/05/17) promethazine (Verified Allergy, Unknown, 07/05/17) Uncoded Allergies: IV CONTRAST (Allergy, Mild, 10/02/17) Vitals & I&Os Vital Sign - Last 12Hours Date Time Temp Pulse Resp B/P (MAP) Pulse Ox O2 Delivery O2 Flow Rate FiO2 03/31/19 08:31 96.9 74 19 137/66 (89) 95 Nasal Cannula 1.00 03/28/19 23:07 3 Intake and Output 03/31/19 00:00 Intake Total 2550 ml Output Total 3800 ml Balance -1250 ml General Appearance: Alert, Oriented X3, No Acute Distress HEENT: Mucous Memb Moist/[place] Respiratory: Clear to Auscultation, Normal Air Movement Cardiovascular: Regular Rate, No Murmurs Abdominal: Normal Bowel Sounds, Soft, No Tenderness, No Hepatosplenomegaly, No Masses Extremities: No Edema, No Tenderness/Swelling Skin: No Rashes, No Breakdown Neuro: Strength at 5/5 X4 Ext, Cranial Nerves 3-12 NL Psych/Mental Status: Mental Status NL, Mood NL Hospital Course Was the Problem List Reviewed?: Yes See final discharge diagnosis. Discussion & Recommendations 54 yo F that presented with worsening shortness of breath and diagnosed with COPD exacerbation. Patient was started on steroids and antibiotics and was able to titrate down to RA. Patient was discharged to complete PO steroids and antibiotics at home. Will have close f.u with PCP. Discharge Condition at discharge stable Instructions to patient/family Please see electronic discharge instructions given to patient. Discharge Medications Reviewed and agree with Discharge Medication list on patient's Discharge Instruction sheet Clinical Quality Measures DVT/VTE Risk/Contraindication: Risk Factor Score Per Nursin RFS Level Per Nursing on Admit: 4+=Very High CARROL AGUIRRE MD Mar 31, 2019 11:13
[2019-03-31] MEDS ORDERED: PRD50T PO (11:54)
--- NOTE | 2019-03-31 12:03 | Discharge Instructions ---
Discharge [facility] Discharge Medications New, Converted or Re-Newed RX: Transmitted to Pharmacy New Medications: Prednisone (Prednisone) 50 Mg Tab 50 MG PO DAILY, #7 TAB Continued Medications: Acetaminophen (Tylenol Extra Strength) 500 Mg Tablet 500-1000 MG PO Q6H PRN for PAIN-MILD, TAB Albuterol Sulfate (Ventolin Hfa) 1 Puff Puff 2 PUFF INH Q4H PRN for SHORTNESS OF BREATH, INHALER 1 PUFF = 90 MCG Albuterol Sulfate (Albuterol Sulfate) 2.5 Mg/3 Ml Vial.neb 2.5 MG NEB QID PRN for SHORTNESS OF BREATH, EA Amlodipine Besylate/Benazepril (Amlodipine-Benazepril 5-10 mg) 1 Each Capsule 2 CAP PO DAILY, CAP Ascorbate Calcium (Vitamin C) 500 Mg Tablet 500 MG PO DAILY, TAB Budesonide/Formoterol Fumarate (Symbicort 160-4.5 Mcg Inhaler) 10.2 Gm Hfa.aer.ad 2 PUFF IH BID, INHALER Diphenhydramine HCl (Benadryl) 25 Mg Capsule 50 MG PO DAILY PRN for MIGRAINE, CAP Ondansetron HCl (Zofran) 8 Mg Tablet 8 MG PO Q8H PRN for MIGRAINE, TAB Discontinued Medications: Ibuprofen (Advil) 200 Mg Tablet 400 MG PO TID PRN for PAIN-MILD, TAB Patient Instructions Goal/Follow Up Appt: You have a f.u with Dr Carvalho on Tuesday 04/03@2PM Activity & Diet Discharge Diet: Cardiac Diet Activity as Tolerated: Yes Copy Copies To 1: CANDI CARVALHO MD, HOLLY R MD Mar 31, 2019 12:02
--- NOTE | 2019-03-31 14:46 | NUR ---
CM/SS information faxed to [employer] for oxygen. They will look over information faxed and then provide portable oxygen.
[2019-03-31 16:26] VITALS: BP 141/64
[2019-03-31 17:17] VITALS: BP 141/64
--- NOTE | 2019-04-05 07:04 | Physician Query Clarification ---
PQ-Intro New Diagnosis Admission/Discharge Admission Date: Mar 30, 2019 at 15:14 Discharge Date: Mar 31, 2019 at 17:18 The medical record reflects the following clinical scenario: History/Risk Factors: COPD Asthma Sleep Apnea Clinical Findings: Vitals in ED- Temp 98.0, Pulse 71, Resp 18, O2 Sats on room air 75%. Decreased breath sounds, wheezing. Treatment: O2 flow rate 6L nasal cannula in ED, then 4L, DuoNeb treatments. Question: What condition best reflects the above clinical scenario? Please document a response in the Progress Noter or Discharge Summary. 1. Acute respiratory failure. 2. COPD exacerbation with hypoxemia. 3. Other, with explanation of the clinical findings. 4. Clinically undetermined, no explanation for the clinical findings. PHYSICIAN RESPONSE What condition reflects above: 2 Please remember a lack of response to the above will prompt a phone page by CDI/Coding staff. In responding to this query, please exercise your independent professional judgment. The purpose of this communication is to more accurately reflect the complexity of your patients condition. The fact that a question is asked does not imply that any particular answer is desired or expected. Thank you for your timely response to this clarification. Requestors name: Libertad Myers [facility] [place],[facility] Phone # [phone] THIS PHYSICIAN QUERY FORM IS A PERMANENT PART OF THE MEDICAL RECORD LIBERTAD MYERS Apr 05, 2019 07:04 CARROL AGUIRRE MD Apr 23, 2019 16:39
== END 2019-03-31 17:18 | disposition home or self-care (01) | DRG 192 ==
LOC: EDUNIT# 18:07 → ER 18:08 → 4TH 21:00 → UNDOADMOB 21:00 → 4TH 22:00 → INTOOBSV 03-30 15:14 → OBSVTOIN 03-30 15:14 → UNDODISIN 03-31 17:18
PROVIDERS: ADMIT Family Medicine; ATTEND Family Medicine
DX: J44.1 Chronic obstructive pulmonary disease with (acute) exacerbation (principal); R09.02 Hypoxemia; I10 Essential (primary) hypertension; G47.30 Sleep apnea, unspecified; Z87.891 Personal history of nicotine dependence
CPT/HCPCS: 36415; 71046; 80048; 80053; 81000; 83605; 85007; 85025; 85027; 85610; 85730; 87040; 87070; 87077; 87088; 87186; 87205; 94640; 94760; 94761; G0378

== ENCOUNTER → 2019-05-02 | Outpatient (CLI) | payer BC ==
[~2019-05-02] MED LIST changes: +ACET-2267 PO; +ALBU2.5V4 NEB; +AMLO1CAP7 PO; +ASCO-262 PO; +BUDE10.2 IH; +DIPH25CA79 PO; +IBUP-30 PO; +ONDA8TAB6 PO; +PRD50T PO; +RT-ALBUINH INH
[2019-05-02 12:04] LABS: ABG BASE EXCESS 6.7 MMOL/L (-2.5-2.5); ABG OXYGEN SATURATION 89 % (94-100); ABG PCO2 50 MMHG (35-45); ABG PH 7.41 (7.37-7.43); ABG PO2 55 MMHG (79-93); ABG TCO2 32.7 MMOL/L (21.0-31.0); ALLENS TEST YES-POS; INSPIRED O2 ROOM AIR; PATIENT TEMP 99.2; VENTILATOR NO
== END ==
LOC: RT 11:28
PROVIDERS: ATTEND Internal Medicine Critical Care Medicine
DX: J44.9 Chronic obstructive pulmonary disease, unspecified (principal); J98.11 Atelectasis; G47.9 Sleep disorder, unspecified; G47.10 Hypersomnia, unspecified; J30.9 Allergic rhinitis, unspecified; R22.43 Localized swelling, mass and lump, lower limb, bilateral; F17.291 Nicotine dependence, other tobacco product, in remission
CPT/HCPCS: 36600; 82805; 94761

== ENCOUNTER → 2019-05-11 | Outpatient (CLI) | payer BC ==
[~2019-05-11] MED LIST changes: +HOLD METFORMIN - RECEIVED CONTRAST 20 ML VIAL IV SCH; +IOHEXOL 350 MG/ML 100 ML (OMNIPAQUE 350) VIAL IV ONE; +NS 100 ML (IVPB) BAG IV ONE
[2019-05-11 08:32] LABS: BUN/CREATININE RATIO 15; CREATININE SERUM 0.74 MG/DL (0.60-1.30); GFR ESTIMATED > 60
--- NOTE | 2019-05-11 10:47 | Diagnostic Imaging Report ---
PROCEDURE: CT angiography of the chest with contrast. TECHNIQUE: Multiple contiguous axial images were obtained through the chest after uneventful bolus administration of intravenous contrast. 3D reconstructed CTA MIP acquisitions were also performed. Auto Exposure Controls were utilized during the CT exam to meet ALARA standards for radiation dose reduction. INDICATION: COPD with nicotine dependency, lower extremity swelling, hypoxia, hypersomnia. FINDINGS: The pulmonary arterial branches widely patent. No filling defect. No PE. The thoracic aorta is patent and nonaneurysmal. There is no pleural or pericardial effusion. No soft tissue or osseous chest wall deformity or lesion. A 5 mm subpleural nodule in the right lower lobe is unchanged from abdominal CT performed 3 years ago confirming benignity. No new or suspicious pulmonary nodule. No evidence for edema or focal pneumonia. No effusion or pneumothorax. IMPRESSION: Negative for PE or other vascular abnormality. Chronic benign subcentimeter subpleural nodule in the right lower lobe. No acute finding. Dictated by: Dictated on workstation # [id number]
--- NOTE | 2019-05-11 10:57 | Diagnostic Imaging Report ---
PROCEDURE: US Venous Lower Ext [place]. TECHNIQUE: Multiple real-time grayscale images were obtained over the lower extremities in various projections, bilaterally. Additional duplex Doppler and color Doppler images were also obtained. INDICATION: Bilateral lower extremity pain and swelling. FINDINGS: The common femoral, femoral, popliteal veins and tibial veins demonstrate normal response to compression, augmentation and Valsalva. There are no abnormal lower extremity fluid collections or masses. IMPRESSION: No evidence of deep venous thrombosis in either lower extremity. Dictated by: Dictated on workstation # [id number]
== END ==
LOC: CARD 07:58
PROVIDERS: ATTEND Internal Medicine Critical Care Medicine
DX: J44.9 Chronic obstructive pulmonary disease, unspecified (principal); I87.8 Other specified disorders of veins; J98.11 Atelectasis; G47.10 Hypersomnia, unspecified; J30.9 Allergic rhinitis, unspecified; R22.43 Localized swelling, mass and lump, lower limb, bilateral; R09.02 Hypoxemia; F17.291 Nicotine dependence, other tobacco product, in remission
CPT/HCPCS: 36415; 71275; 82565; 84520; 93306; 93970

== ENCOUNTER 2019-05-24 09:07 | Outpatient (RCR) | payer BC ==
[~2019-05-24 09:07] MED LIST changes: +AMLO-65 PO; -AMLO1CAP7 PO; -HOLD METFORMIN - RECEIVED CONTRAST 20 ML VIAL IV SCH; -IOHEXOL 350 MG/ML 100 ML (OMNIPAQUE 350) VIAL IV ONE; -NS 100 ML (IVPB) BAG IV ONE
[2019-06-15 09:30] VITALS: BP 120/60
[2019-06-15 10:45] VITALS: BP 120/80
[2019-06-20 09:35] VITALS: BP 131/62
[2019-06-20 10:25] VITALS: BP 120/70
[2019-06-22 09:40] VITALS: BP 150/60
[2019-06-22 10:32] VITALS: BP 130/60
[2019-06-27 09:30] VITALS: BP 130/60
[2019-06-27 10:30] VITALS: BP 121/61
[2019-07-04 09:30] VITALS: BP 130/60
[2019-07-04 10:32] VITALS: BP 140/60
[2019-07-06 09:30] VITALS: BP_SYST 121; BP_SYST 130; BP_DIAS 60; BP_DIAS 63
[2019-07-06 10:45] VITALS: BP_SYST 118; BP_SYST 140; BP_DIAS 60
[2019-07-13 09:30] VITALS: BP 140/60
[2019-07-13 10:45] VITALS: BP 110/68
[2019-07-20 09:45] VITALS: BP 138/76
[2019-07-20 10:45] VITALS: BP 100/64
[2019-07-25 09:30] VITALS: BP 122/60
[2019-07-25 10:31] VITALS: BP 116/60
[2019-08-15 09:30] VITALS: BP 140/70
[2019-08-15 10:25] VITALS: BP 108/70
[2019-08-22 09:25] VITALS: BP 122/80
[2019-08-22 10:30] VITALS: BP 98/70
[2019-08-24 09:30] VITALS: BP 140/50
[2019-08-24 10:45] VITALS: BP 130/70
== END 2019-08-22 | disposition home or self-care (01) ==
LOC: RT 09:07
PROVIDERS: ATTEND Nurse Practitioner Family
DX: J44.9 Chronic obstructive pulmonary disease, unspecified (principal)
CPT/HCPCS: 99211

== ENCOUNTER → 2019-08-16 | Outpatient (CLI) | payer BC ==
[~2019-08-16] MED LIST changes: +RT-ALBUTEROL SULF 2.5 MG/3 ML PRE-MIX VIAL INH ONE
== END ==
LOC: RT 13:25
PROVIDERS: ATTEND Nurse Practitioner Family
DX: J30.9 Allergic rhinitis, unspecified (principal); J44.9 Chronic obstructive pulmonary disease, unspecified; J98.11 Atelectasis; G47.10 Hypersomnia, unspecified; G47.33 Obstructive sleep apnea (adult) (pediatric)
CPT/HCPCS: 94060; 94726; 94729

== ENCOUNTER 2019-09-05 09:25 | Outpatient (RCR) | payer BC ==
[~2019-09-05 09:25] MED LIST changes: -RT-ALBUTEROL SULF 2.5 MG/3 ML PRE-MIX VIAL INH ONE
[2019-09-05 09:30] VITALS: BP 127/80
[2019-09-05 10:20] VITALS: BP 122/82
[2019-09-12 09:30] VITALS: BP 121/82
[2019-09-12 10:15] VITALS: BP 104/64
== END 2019-12-04 | disposition home or self-care (01) ==
LOC: PULM 09:25
PROVIDERS: ATTEND Nurse Practitioner Family
DX: J44.9 Chronic obstructive pulmonary disease, unspecified (principal)

== ENCOUNTER → 2019-09-11 | Outpatient (CLI) | payer BC ==
--- NOTE | 2019-09-11 19:13 | Diagnostic Imaging Report ---
EXAM: CT chest without intravenous contrast with high-resolution images. TECHNIQUE: Axial noncontrast CT images of the chest were obtained with typical protocol with the separately performed thin section high-resolution protocol noncontrast axial images of the chest in prone and supine positioning. DATE: September 11, 2019. COMPARISON: CT chest May 11, 2019. INDICATION: 54-year-old female, cough. History of COPD. PROCEDURE: Axial noncontrasted CT images of the chest. Noncontrasted limits the evaluation of the mediastinum and vascular structures. FINDINGS: In the right upper lobe on axial image 85, there is a noncalcified 5 mm pulmonary nodule. This is unchanged since recent CT of May 11, 2019. There are mild linear opacities in the right middle lobe and right lower lobe likely relating to mild atelectasis and/or scarring. There is a 3 mm noncalcified right lower lobe pulmonary nodule on axial image 94 which is unchanged as well as additional noncalcified 5 mm right lower lobe pulmonary nodule on current axial image 87. There is no identified new or enlarging pulmonary nodule. There are mild upper lobe predominant changes of emphysema. There is no bronchiectasis. There is no peripheral honeycombing. There are no areas of groundglass lung attenuation. The central airways are patent. There is no pneumothorax. There is no pleural effusion. The heart is not enlarged. There is no pericardial effusion. There is no identified abnormally enlarged mediastinal or axillary lymph node which meets CT size criteria for adenopathy. The patient is status post cholecystectomy. There are atherosclerotic calcifications. Additional imaging evaluation of the upper abdomen within the included field of view is unremarkable. There are degenerative changes of the spine. There are chronic appearing deformities of the left posterior 11th and 12th ribs. There is no identified acute bony abnormality. IMPRESSION: 1. Stable subcentimeter pulmonary nodules since May 11, 2019. Recommend follow-up CT chest in 6 months to evaluate for continued stability. 2. Mild upper lobe predominant changes of emphysema. 3. No evidence of interstitial lung disease. Dictated by: Dictated on workstation # [id number]
== END ==
LOC: RAD 15:35
PROVIDERS: ATTEND Nurse Practitioner Family
DX: J43.9 Emphysema, unspecified (principal); J98.11 Atelectasis; R91.8 Other nonspecific abnormal finding of lung field
CPT/HCPCS: 71250

== ENCOUNTER → 2020-04-09 | Outpatient (CLI) | payer BC ==
[~2020-04-09] MED LIST changes: +HOLD METFORMIN - RECEIVED CONTRAST 20 ML VIAL IV SCH; +IOHEXOL 350 MG/ML 100 ML (OMNIPAQUE 350) VIAL IV ONE; +NS 100 ML (IVPB) BAG IV ONE
[2020-04-09 08:38] LABS: CREATININE SERUM 0.83 MG/DL (0.60-1.30); GFR ESTIMATED > 60
[2020-04-09 08:39] LABS: BUN/CREATININE RATIO 19
--- NOTE | 2020-04-09 09:26 | Diagnostic Imaging Report ---
EXAMINATION: CT Chest with intravenous contrast. TECHNIQUE: Multiple contiguous axial images were obtained through the chest after the uneventful administration of intravenous contrast. All CT scans use one or more of the following dose optimizing techniques: automated exposure control, MA and/or KvP adjustment based on a patient size and exam type, or iterative reconstruction. HISTORY: COPD, hypoxia COMPARISON: 09/11/2019 FINDINGS: There is no edema or pneumonia. No pleural effusion. No pneumothorax. There is a stable 5 mm right upper lobe nodule (series 3, image 89). A 5 mm right lower lobe nodule is also stable (series 3, image 96). Other scattered 3 mm and smaller nodules are also stable. No new or suspicious nodules are seen. There is mild atelectasis at the bases. Heart size is normal. There are mild coronary artery calcifications. No pericardial effusion. Aorta is normal in caliber. There is no axillary or supraclavicular lymphadenopathy. There is no mediastinal lymphadenopathy. Limited views of the upper abdomen show changes of cholecystectomy. There are no suspicious osseus lesions. IMPRESSION: 1. Stable pulmonary nodules which can be considered benign given their stability. Dictated by: Dictated on workstation # [id number]
== END ==
LOC: RAD 08:06
PROVIDERS: ATTEND Nurse Practitioner Family
DX: J44.9 Chronic obstructive pulmonary disease, unspecified (principal); J98.11 Atelectasis; F17.211 Nicotine dependence, cigarettes, in remission; R91.8 Other nonspecific abnormal finding of lung field; R09.02 Hypoxemia
CPT/HCPCS: 36415; 71260; 82565; 84520

== ENCOUNTER 2020-11-25 15:48 | Emergency (ER) | payer BC ==
[~2020-11-25] VITALS: Ht 160 cm; Wt 104.0 kg
[~2020-11-25 15:48] MED LIST changes: -HOLD METFORMIN - RECEIVED CONTRAST 20 ML VIAL IV SCH; -IOHEXOL 350 MG/ML 100 ML (OMNIPAQUE 350) VIAL IV ONE; -NS 100 ML (IVPB) BAG IV ONE
--- NOTE | 2020-11-25 16:14 | ED General ---
General Stated Complaint: SOB Source of Information: Patient Exam Limitations: No Limitations History of Present Illness Date Seen by Provider: Nov 25, 2020 Time Seen by Provider: 16:12 Initial Comments To ER with shortness of breath for 2 weeks. No fevers or chills. Has COPD. Wears oxygen at 3 L per nasal cannula [id number]. Quit smoking several years ago. Has a history of pneumonia every year about this time and she believes that she has pneumonia in both lungs. Was on spiriva and symbicort after follow up with Dr Montejo but she quit taking this about a year ago. Timing/Duration: 1-2 Days Severity: Moderate Associated Systoms: Cough, Shortness of Air Allergies and Home Medications Allergies Coded Allergies: Penicillins (Verified Allergy, Unknown, 07/05/17) Sulfa (Sulfonamide Antibiotics) (Verified Allergy, Unknown, 07/05/17) codeine (Verified Allergy, Unknown, 07/05/17) hydrocodone (Verified Allergy, Unknown, 07/05/17) levofloxacin (Verified Allergy, Unknown, 07/05/17) promethazine (Verified Allergy, Unknown, 07/05/17) Uncoded Allergies: IV CONTRAST (Allergy, Mild, 10/02/17) Home Medications ALPRAZolam 0.25 Mg Tablet, 0.25 MG PO BID PRN for ANXIETY Prescribed by: JULIAN VEGA on 11/25/201745 Acetaminophen 500 Mg Tablet, 500-1,000 MG PO Q6H PRN for PAIN-MILD, (Reported) Albuterol Sulfate 1 Puff Puff, 2 PUFF INH Q4H PRN for SHORTNESS OF BREATH, (Reported) 1 PUFF = 90 MCG Albuterol Sulfate 2.5 Mg/3 Ml Vial.neb, 2.5 MG NEB QID PRN for SHORTNESS OF BREATH, (Reported) Amlodipine Besylate/Benazepril 1 Each Capsule, 2 CAP PO DAILY, (Reported) Ascorbate Calcium 500 Mg Tablet, 500 MG PO DAILY, (Reported) Azithromycin 250 Mg Tablet, 250 MG PO DAILY Prescribed by: JULIAN VEGA on 11/25/201744 Budesonide/Formoterol Fumarate 10.2 Gm Hfa.aer.ad, 2 PUFF IH BID, (Reported) Budesonide/Formoterol Fumarate 10.2 Gm Hfa.aer.ad, 2 PUFF IH BID Prescribed by: UJLIAN VEGA on 11/25/20 180 Diphenhydramine HCl 25 Mg Capsule, 50 MG PO DAILY PRN for MIGRAINE, (Reported) Ondansetron HCl 8 Mg Tablet, 8 MG PO Q8H PRN for MIGRAINE, (Reported) Prednisone 50 Mg Tab, 50 MG PO DAILY Prescribed by: CARROL AGUIRRE on 03/31/19 1154 Prednisone 20 Mg Tab, 40 MG PO DAILY Prescribed by: JULIAN VEGA on 11/25/20 1745 Tiotropium Paterson 4 Gm Mist.inhal, 2 PUFF IH DAILY Prescribed by: JULIAN VEGA on 11/25/201803 Patient Home Medication List Home Medication List Reviewed: Yes Review of Systems Review of Systems Constitutional: see HPI EENTM: see HPI Respiratory: cough Cardiovascular: no symptoms reported Genitourinary: no symptoms reported Musculoskeletal: no symptoms reported Skin: no symptoms reported Psychiatric/Neurological: No Symptoms Reported Hematologic/Lymphatic: No Symptoms Reported Immunological/Allergic: no symptoms reported Past Xytqxdg-Jeqabm-Dxcrqz Hx Patient Social History Type Used: Cigarettes Former Smoker, Quit: Oct 17, 2017 2nd Hand Smoke Exposure: No Recent Hopitalizations: No Immunizations Up To Date Tetanus Booster (TDap): Unknown PED Vaccines UTD: Yes Date of Pneumonia Vaccine: Oct 18, 2013 Seasonal Allergies Seasonal Allergies: No Past Medical History Surgeries: Yes Appendectomy, Gallbladder, Orthopedic, Tonsillectomy Respiratory: Yes Asthma, Sleep Apnea, COPD Currently Using CPAP: Yes Cardiac: No Neurological: No Genitourinary: No Gastrointestinal: No Musculoskeletal: No Endocrine: No HEENT: No Cancer: No Psychosocial: No Integumentary: No Blood Disorders: No Family Medical History Diabetes mellitus 19 MOTHER G8 BROTHER G8 SISTER FH: COPD (chronic obstructive pulmonary disease) 19 MOTHER FH: esophageal cancer G8 BROTHER Hypertension 19 MOTHER Myocardial infarction 19 MOTHER No Pertinent Family Hx Physical Exam Vital Signs Vital Signs - First Documented 11/25/20 16:05 Temp 36.5 Pulse 85 Resp 18 B/P (MAP) 137/94 (108) Pulse Ox 96 O2 Delivery Nasal Cannula O2 Flow Rate 4.00 Capillary Refill : Height, Weight, BMI Height: 5'4.00" Weight: 238lbs. 6.0oz. 98.885655ke; 36.9 BMI Method:Stated General Appearance: No Apparent Distress, WD/WN, Other (95% on her baseline 3 L) Eyes: Bilateral Eye Normal Inspection, Bilateral Eye PERRL, Bilateral Eye EOMI Neck: Full Range of Motion, Normal Inspection Respiratory: Lungs Clear, No Accessory Muscle Use, No Respiratory Distress, Decreased Breath Sounds Cardiovascular: Regular Rate, Rhythm, Normal Peripheral Pulses Gastrointestinal: Normal Bowel Sounds, Non Tender, Soft Extremity: Normal Capillary Refill, Normal Inspection Neurologic/Psychiatric: Alert, Oriented x3 Skin: Normal Color, Warm/Dry Progress/Results/Core Measures Suspected Sepsis SIRS Temperature: Pulse: Respiratory Rate: Laboratory Tests 11/25/20 16:15: White Blood Count 7.9 Blood Pressure / Mean: Laboratory Tests 11/25/20 16:15: Creatinine 0.88, Platelet Count 239, Total Bilirubin 0.4 Results/Orders Lab Results Laboratory Tests Test 11/25/20 16:15 11/25/20 16:30 Range/Units White Blood Count 7.9 4.3-11.0 10^3/uL Red Blood Count 4.54 3.80-5.11 10^6/uL Hemoglobin 13.3 11.5-16.0 g/dL Hematocrit 41 35-52 % Mean Corpuscular Volume 91 80-99 fL Mean Corpuscular Hemoglobin 29 25-34 pg Mean Corpuscular Hemoglobin Concent 32 32-36 g/dL Red Cell Distribution Width 12.4 10.0-14.5 % Platelet Count 239 130-400 10^3/uL Mean Platelet Volume 9.7 9.0-12.2 fL Immature Granulocyte % (Auto) 0 % Neutrophils (%) (Auto) 65 42-75 % Lymphocytes (%) (Auto) 24 12-44 % Monocytes (%) (Auto) 5 0-12 % Eosinophils (%) (Auto) 5 0-10 % Basophils (%) (Auto) 1 0-10 % Neutrophils # (Auto) 5.1 1.8-7.8 10^3/uL Lymphocytes # (Auto) 1.9 1.0-4.0 10^3/uL Monocytes # (Auto) 0.4 0.0-1.0 10^3/uL Eosinophils # (Auto) 0.4 H 0.0-0.3 10^3/uL Basophils # (Auto) 0.1 0.0-0.1 10^3/uL Immature Granulocyte # (Auto) 0.0 0.0-0.1 10^3/uL D-Dimer 0.33 0.00-0.49 UG/ML Sodium Level 140 135-145 MMOL/L Potassium Level 4.2 3.6-5.0 MMOL/L Chloride Level 99 98-107 MMOL/L Carbon Dioxide Level 30 21-32 MMOL/L Anion Gap 11 5-14 MMOL/L Blood Urea Nitrogen 11 7-18 MG/DL Creatinine 0.88 0.60-1.30 MG/DL Estimat Glomerular Filtration Rate > 60 BUN/Creatinine Ratio 13 Glucose Level 194 H 70-105 MG/DL Calcium Level 10.3 H 8.5-10.1 MG/DL Corrected Calcium 8.5-10.1 MG/DL Total Bilirubin 0.4 0.1-1.0 MG/DL Aspartate Amino Transf (AST/SGOT) 18 5-34 U/L Alanine Aminotransferase (ALT/SGPT) 18 0-55 U/L Alkaline Phosphatase 65 40-136 U/L C-Reactive Protein High Sensitivity 2.19 H 0.00-0.50 MG/DL Total Protein 8.0 6.4-8.2 GM/DL Albumin 4.6 H 3.2-4.5 GM/DL Procalcitonin 0.02 <0.10 NG/ML Coronavirus 2019 ([facility]) Negative Negative Blood Gas Puncture Site R WRIST Blood Gas Patient Temperature 97.7 Arterial Blood pH 7.42 7.37-7.43 Arterial Blood Partial Pressure CO2 46 H 35-45 MMHG Arterial Blood Partial Pressure O2 78 L 79-93 MMHG Arterial Blood HCO3 30 H 23-27 MMOL/L Arterial Blood Total CO2 31.1 H 21.0-31.0 MMOL/L Arterial Blood Oxygen Saturation 97 94-100 % Arterial Blood Base Excess 5.2 H -2.5-2.5 MMOL/L Dwight Test YES-POS Blood Gas Ventilator Setting NO Blood Gas Inspired Oxygen 4 L My Orders Orders - JULIAN VEGA APRN Arterial Blood Gas (11/25/20 16:05) Procalcitonin (Pct) (11/25/20 16:05) Cbc With Automated Diff (11/25/20 16:05) Hs C Reactive Protein (11/25/20 16:05) Comprehensive Metabolic Panel (11/25/20 16:05) Fibrin Degradation Products (11/25/20 16:05) Chest 1 View, Ap/Pa Only (11/25/20 16:05) Covid 19 Inhouse Test (11/25/20 16:14) Albuterol Inhaler (Ventolin Hfa) (11/25/20 18:00) Prednisone Tablet (Deltasone Tablet) (11/25/20 17:30) Azithromycin Tablet (Zithromax Tablet) (11/25/20 17:30) Rx-Lorazepam (Rx-Ativan) (11/25/20 17:47) Medications Given in ED Current Medications Medications Dose Ordered Sig/Ventura Route Start Time Stop Time Status Last Admin Dose Admin Prednisone 60 mg ONCE ONCE PO 11/25/20 17:30 11/25/20 17:31 DC 11/25/20 17:57 60 MG Vital Signs/I&O 11/25/20 16:05 Temp 36.5 Pulse 85 Resp 18 B/P (MAP) 137/94 (108) Pulse Ox 96 O2 Delivery Nasal Cannula O2 Flow Rate 4.00 Capillary Refill : Diagnostic Imaging Diagonstic Imaging: Xray Plain Films/CT/US/NM/MRI: chest Comments NAME: WESLEY CUELLO [facility] REC#: [id number] PT STATUS: REG ER : 1965 PHYSICIAN: JULIAN VEGA APRN ADMIT DATE: 11/25/20/ER Draft Date of Exam:11/25/20 CHEST 1 VIEW, AP/PA ONLY INDICATION: Shortness of breath. EXAMINATION: PA chest obtained at 4:30 PM. COMPARISON: 03/28/2019. FINDINGS: The heart is normal in size. There is mild COPD change. There are chronic appearing increased basilar markings which are similar to the prior study. There is no pneumothorax, pleural fluid, or new infiltrate. IMPRESSION: COPD changes and chronic appearing increased basilar markings. No acute consolidation or pleural fluid. Dictated on workstation # [id number] Dict: 11/25/203 Trans: 11/25/20 164 [id number] Interpreted by: KAVIN LARSEN MD Electronically signed by: Departure Impression Primary Impression: COPD (chronic obstructive pulmonary disease) Disposition: 01 HOME, SELF-CARE Condition: Stable Departure-Patient Inst. Decision time for Depature: 17:28 Referrals: CANDI CARVALHO MD (PCP/Family) Primary Care Physician Patient Instructions: COPD Exacerbation, Adult ED Add. Discharge Instructions: 1. Steroids and antibiotics as directed. Return to ER for any concerns. Follo w-up with your doctor next week. Scripts Budesonide/Formoterol Fumarate (Symbicort 80-4.5 Mcg Inhaler) 10.2 Gm Hfa.aer.ad 2 PUFF IH BID, #1 INHALER Prov: JULIAN VEGA APRN 11/25/20 Tiotropium [place] (Spiriva Respimat 1.25MCG/ACTUATION) 4 Gm Mist.inhal 2 PUFF IH DAILY, #1 EA Prov: JULIAN VEGA APRN 11/25/20 ALPRAZolam (ALPRAZolam) 0.25 Mg Tablet 0.25 MG PO BID PRN for ANXIETY, #14 TAB Prov: JULIAN VEGA APRN 11/25/20 Azithromycin (Azithromycin) 250 Mg Tablet 250 MG PO DAILY, #4 TAB 0 Refills Prov: JULIAN VEGA APRN 11/25/20 Prednisone (Prednisone) 20 Mg Tab 40 MG PO DAILY, #6 TAB Prov: JULIAN VEGA APRN 11/25/20 JULIAN VEGA APRN Nov 25, 2020 16:14
[2020-11-25 16:29] LABS: BASOPHILS # (AUTO) 0.1 10^3/uL (0.0-0.1); BASOPHILS % (AUTO) 1 % (0-10); EOSINOPHILS # (AUTO) 0.4 10^3/uL (0.0-0.3); EOSINOPHILS % (AUTO) 5 % (0-10); HEMATOCRIT 41 % (35-52); HEMOGLOBIN 13.3 g/dL (11.5-16.0); LYMPHOCYTES # (AUTO) 1.9 10^3/uL (1.0-4.0); LYMPHOCYTES % (AUTO) 24 % (12-44); MEAN CORPUSCULAR HEMOGLOBIN 29 pg (25-34); MEAN CORPUSCULAR HGB CONC 32 g/dL (32-36); MEAN CORPUSCULAR VOLUME 91 fL (80-99); MEAN PLATELET VOLUME 9.7 fL (9.0-12.2); MONOCYTES # (AUTO) 0.4 10^3/uL (0.0-1.0); MONOCYTES % (AUTO) 5 % (0-12); NEUTROPHILS # (AUTO) 5.1 10^3/uL (1.8-7.8); NEUTROPHILS % (AUTO) 65 % (42-75); PLATELET COUNT 239 10^3/uL (130-400); WHITE BLOOD COUNT 7.9 10^3/uL (4.3-11.0)
[2020-11-25 16:40] LABS: ALBUMIN 4.6 GM/DL (3.2-4.5); CHLORIDE 99 MMOL/L (98-107); POTASSIUM 4.2 MMOL/L (3.6-5.0); SODIUM 140 MMOL/L (135-145)
[2020-11-25 16:42] LABS: CALCIUM 10.3 MG/DL (8.5-10.1)
[2020-11-25 16:43] LABS: GLUCOSE 194 MG/DL (70-105)
[2020-11-25 16:43] LABS: ABG BASE EXCESS 5.2 MMOL/L (-2.5-2.5); ABG OXYGEN SATURATION 97 % (94-100); ABG PCO2 46 MMHG (35-45); ABG PH 7.42 (7.37-7.43); ABG PO2 78 MMHG (79-93); ABG TCO2 31.1 MMOL/L (21.0-31.0)
[2020-11-25 16:44] LABS: ALLENS TEST YES-POS; INSPIRED O2 4 L; PATIENT TEMP 97.7; VENTILATOR NO
[2020-11-25 16:44] LABS: CARBON DIOXIDE 30 MMOL/L (21-32)
[2020-11-25 16:45] LABS: BILIRUBIN,TOTAL 0.4 MG/DL (0.1-1.0)
[2020-11-25 16:46] LABS: ALKALINE PHOSPHATASE 65 U/L (40-136)
--- NOTE | 2020-11-25 16:46 | Diagnostic Imaging Report ---
INDICATION: Shortness of breath. EXAMINATION: PA chest obtained at 4:30 PM. COMPARISON: 03/28/2019. FINDINGS: The heart is normal in size. There is mild COPD change. There are chronic appearing increased basilar markings which are similar to the prior study. There is no pneumothorax, pleural fluid, or new infiltrate. IMPRESSION: COPD changes and chronic appearing increased basilar markings. No acute consolidation or pleural fluid. Dictated by: Dictated on workstation # [id number]
[2020-11-25 16:47] LABS: CREATININE SERUM 0.88 MG/DL (0.60-1.30); GFR ESTIMATED > 60
[2020-11-25 16:48] LABS: BUN/CREATININE RATIO 13
[2020-11-25 16:49] LABS: ALANINE AMINOTRANSFERASE 18 U/L (0-55)
[2020-11-25] MEDS ORDERED: AZITHROMYCIN 250 MG TAB (ZITHROMAX) PO SCH (17:30)
[2020-11-25] MEDS ORDERED: predniSONE 20 MG TAB PO ONE (17:30)
[2020-11-25] MEDS ORDERED: AZIT250T12 PO (17:45)
[2020-11-25] MEDS ORDERED: PRD20T PO (17:45)
[2020-11-25] MEDS ORDERED: ALPR0.254 PO (17:46)
[2020-11-25] MEDS ORDERED: RX-LORAZEPAM (ATIVAN) 0.5 MG TAB PPK#4 PO STA (17:47)
[2020-11-25] MEDS ORDERED: RT-ALBUTEROL INHALER HFA (VENTOLIN HFA) 18 GM IH SCH (18:00)
[2020-11-25] MEDS ORDERED: TIOT4MIS5 IH (18:04)
[2020-11-25] MEDS ORDERED: BUDE10.22 IH (18:04)
[2020-11-25 18:06] VITALS: BP 119/64
== END 2020-11-25 18:06 | disposition home or self-care (01) ==
LOC: EDUNIT# 15:48 → ER 15:51
DX: J44.9 Chronic obstructive pulmonary disease, unspecified (principal); Z20.822 Contact with and (suspected) exposure to COVID-19; Z87.891 Personal history of nicotine dependence; Z88.0 Allergy status to penicillin; Z88.2 Allergy status to sulfonamides; Z88.5 Allergy status to narcotic agent; Z88.8 Allergy status to other drugs, medicaments and biological substances; Z88.1 Allergy status to other antibiotic agents; Z82.49 Family history of ischemic heart disease and other diseases of the circulatory system; Z83.3 Family history of diabetes mellitus; Z80.0 Family history of malignant neoplasm of digestive organs; Z91.041 Radiographic dye allergy status; Z79.52 Long term (current) use of systemic steroids
CPT/HCPCS: 71045; 80053; 82805; 84145; 85025; 85379; 86141; 99285; U0002; 36415; 87635

== ENCOUNTER → 2021-03-10 | Outpatient (CLI) | payer BC ==
[~2021-03-10] MED LIST changes: +ALPR0.254 PO; +AZIT250T12 PO; +BUDE10.22 IH; +CATHETER FLUSH 10 ML SYR IV PRN; +HOLD METFORMIN - RECEIVED CONTRAST 20 ML VIAL IV SCH; +IOHEXOL 350 MG/ML 100 ML (OMNIPAQUE 350) VIAL IV ONE; +NS 100 ML (IVPB) BAG IV ONE; +PRD20T PO; +RT-ALBUTEROL SULF 2.5 MG/3 ML PRE-MIX VIAL INH ONE; +TIOT4MIS5 IH
[2021-03-10 13:19] LABS: CREATININE SERUM 0.84 MG/DL (0.60-1.30); GFR ESTIMATED > 60
[2021-03-10 13:20] LABS: BUN/CREATININE RATIO 12
--- NOTE | 2021-03-10 14:38 | Diagnostic Imaging Report ---
PROCEDURE: CT chest with contrast only. TECHNIQUE: Multiple contiguous axial images were obtained through the chest after administration of intravenous contrast. Auto Exposure Controls were utilized during the CT exam to meet ALARA standards for radiation dose reduction. INDICATION: COPD with history of hypoxia. Pulmonary nodules. CORRELATION: 04/09/2020. FINDINGS: There is no significant mediastinal, axillary and/or hilar lymphadenopathy. The heart size is unremarkable. Thoracic aorta normal in contour. The lung carrion are clear of infiltrate. -Image 91 series 3, stable 5 mm right upper lobe pulmonary nodule. -Image 92 series 3, 5 mm right lower lobe nodule, stable. -Image 97 series 3, 3 mm right lower lobe nodule, stable. Prominent severity hepatic steatosis. Cholecystectomy. Moderately advanced degenerative changes through the thoracic spine. IMPRESSION: 1. Pulmonary nodules overall appear generally stable and favor a benign process. Followup imaging in 1 year is recommended. 2. At least moderate severity steatosis of the liver. Dictated by: Dictated on workstation # [id number]
== END ==
LOC: RT 12:24
PROVIDERS: ATTEND Nurse Practitioner Family
DX: J44.9 Chronic obstructive pulmonary disease, unspecified (principal); R91.8 Other nonspecific abnormal finding of lung field; K76.0 Fatty (change of) liver, not elsewhere classified
CPT/HCPCS: 36415; 71260; 82565; 84520; 94060; 94726; 94729

== ENCOUNTER → 2022-04-29 | Outpatient (CLI) | payer BC, MEDICARE ==
[~2022-04-29] MED LIST changes: -CATHETER FLUSH 10 ML SYR IV PRN; -HOLD METFORMIN - RECEIVED CONTRAST 20 ML VIAL IV SCH; -IOHEXOL 350 MG/ML 100 ML (OMNIPAQUE 350) VIAL IV ONE; -NS 100 ML (IVPB) BAG IV ONE; -RT-ALBUTEROL SULF 2.5 MG/3 ML PRE-MIX VIAL INH ONE
--- NOTE | 2022-04-29 16:47 | Diagnostic Imaging Report ---
INDICATION: COPD, lung nodule follow-up. TECHNIQUE: Multiple contiguous axial images were obtained through the chest without the use of intravenous contrast. Auto Exposure Controls were utilized during the CT exam to meet ALARA standards for radiation dose reduction. COMPARISON: 03/10/2021. FINDINGS: There are no enlarged mediastinal or hilar nodes. There are no enlarged axillary nodes or chest wall masses. There is no pleural or pericardial fluid. Old left-sided rib fractures are noted. Visualized portions of the upper abdomen demonstrate cholecystectomy changes with no acute finding. Lung parenchymal windows demonstrate COPD changes. There is no focal infiltrate. There is some linear scarring in the left upper lobe. There is some linear scarring in the right lower lobe. Right lower lobe nodular density is again noted measuring 5 mm, on image 87 of series 3. Right upper lobe nodule again noted and stable, measuring about 5 mm, image 94 series 3. Additional small nodule in the right lower lobe seen on image 93 series 3, measuring 3 mm and unchanged from the prior study. There were no new pulmonary nodules detected. IMPRESSION: 1. COPD changes. 2. Areas of scarring are seen in the left upper lobe and right lower lobe. 3. Small right pulmonary nodules are stable compared to the prior study of 03/10/2021. They are also stable compared with 04/09/2020. These nodules therefore can be considered benign findings. 4. There is no acute process in the chest. Dictated by: Dictated on workstation # [id number]
== END ==
LOC: RAD 15:04
PROVIDERS: ATTEND Nurse Practitioner Family
DX: J44.9 Chronic obstructive pulmonary disease, unspecified (principal); R91.8 Other nonspecific abnormal finding of lung field; Z87.891 Personal history of nicotine dependence; J98.4 Other disorders of lung
CPT/HCPCS: 71250

== ENCOUNTER → 2022-05-27 | Outpatient (CLI) | payer MEDICARE ==
[~2022-05-27] VITALS: Ht 163 cm; Wt 104.5 kg
== END | disposition home or self-care (01) ==
LOC: PREOP 05:41
PROVIDERS: ATTEND Surgery
DX: Z01.818 Encounter for other preprocedural examination (principal)

== ENCOUNTER 2022-06-09 09:58 | Day surgery (SDC) | payer MEDICARE ==
[~2022-06-09] VITALS: Ht 162.6 cm; Wt 104.5 kg
[2022-06-09] MEDS ORDERED: LACTATED RINGERS 1,000 ML IV STA (10:03)
--- NOTE | 2022-06-09 10:37 | Progress Note-Pre Operative ---
Pre-Operative Progress Note Date of Available H&P: May 13, 2022 Date H&P Reviewed: Jun 09, 2022 Time H&P Reviewed: 10:37 History & Physical: H&P Reviewed, Patient Examed, No changes noted Pre-Operative Diagnosis: +EMILIA Whitney DO Jun 09, 2022 10:37
[2022-06-09] MEDS ORDERED: PROPOFOL INJECTION 50 ML IV ONE (10:38)
[2022-06-09] MEDS ORDERED: proPOfol 200 MG/20 ML (DIPRIVAN) VIAL IV ONE (11:26)
--- NOTE | 2022-06-09 11:49 | Progress Note-Post Operative ---
Post-Operative Progess Note Surgeon (s)/Director Supply Chain (s) Surgeon EMILIA JACKSON DO Director Supply Chain: na Pre-Operative Diagnosis +cologuard Post-Operative Diagnosis colon polyps Procedure & Operative Findings Date of Procedure 06/09/22 Procedure Performed/Findings colonoscopy c snare polypectomy x 4 c kiel inking at 40 cm and fulguration of rectal polyp Anesthesia Type per international bank manager Estimated Blood Loss Estimated blood loss (mL): none Specimens/Packing Specimens Removed colon polyps EMILIA JACKSON DO Jun 09, 2022 11:49
[2022-06-09 11:50] VITALS: BP 130/69
--- NOTE | 2022-06-09 11:50 | Discharge Inst-Simple/Standard ---
Discharge Inst-Standard Patient Instructions/Follow Up Plan of Care/Instructions/FU: 2 weeks Josiah Activity as Tolerated: Yes Discharge Diet: Regular Diet EMILIA JACKSON DO Jun 09, 2022 11:50
[2022-06-09 11:55] VITALS: BP 135/90
--- NOTE | 2022-06-09 12:18 | Anesthesia-General Post-Op ---
MAC Patient Condition Mental Status/LOC: Same as Preop Cardiovascular: Satisfactory Nausea/Vomiting: Absent Respiratory: Satisfactory Pain: Controlled Complications: Absent Post Op Complications Complications None Follow Up Care/Instructions Patient Instructions None needed. Anesthesiology Discharge Order Discharge Order Patient is doing well, no complaints, stable vital signs, no apparent adverse anesthesia problems. No complications reported per nursing. HOWARD FERNANDEZ CRNA Jun 09, 2022 12:18
[2022-06-09 12:25] VITALS: BP 125/98
--- NOTE | 2022-06-09 17:02 | OPERATIVE REPORT ---
DATE OF SERVICE: 06/09/2022 PREOPERATIVE DIAGNOSIS: Positive Cologuard. POSTOPERATIVE DIAGNOSIS: Colon polyps. PROCEDURES PERFORMED: Colonoscopy with snare polypectomy x4 with Savanna inking of the 40 cm polyp and fulguration of rectal polyp. SURGEON: Dayo Rahman DO. ANESTHESIA: Per HAND BOOKBINDER. ESTIMATED BLOOD LOSS: None. COMPLICATIONS: None. INDICATIONS FOR PROCEDURE: The patient is a 57-year-old female, who had positive Cologuard test. She understands risks and benefits of the procedure and wishes to proceed. Consent was signed in the chart. DESCRIPTION OF PROCEDURE: The patient was taken to the endoscopy suite and placed in a left lateral recumbent position. Timeout was performed. Digital rectal exam was performed. No palpable polyps, masses or ulcerations. Scope was inserted in the rectum and advanced all the way to cecum with minimal difficulty. Prep was adequate with irrigation and suction. Scope was then slowly retracted back. No polyps, masses or ulcerations in the cecum, or the ascending colon. In transverse colon, two polyps were present, which snare polypectomies were performed. These were obtained for biopsy. One polyp had to be transected a couple of times in order to get through the scope. The scope was then continuously and slowly retracted back. No polyps, masses or ulcerations in the descending colon and sigmoid colon at 40 cm, a large polyp was present, which snare polypectomy was performed. A tattoo was placed just distal to the polyp. This was retracted back through the colon. Scope was then reinserted and hemostasis had been achieved. Scope was then continuously and slowly retracted back into the rectum. Near the rectosigmoid junction, there was another larger polyp, which snare polypectomy was performed. This was then obtained for specimen. Scope was then continuously and slowly retracted back. The rectum was also retroflexed noting a very small polyp in the rectum, which fulguration was performed. Scope was returned to its normal position, slowly withdrawn until completely removed. The patient tolerated the procedure well without any complications. She was taken to the recovery room in stable condition. RECOMMENDATIONS: The patient will need repeat colonoscopy in six months. Any issues before that be seen at that time. Await biopsy results as well. The patient will follow up in two weeks. Job ID: [id number] DocumentID: [id number] Dictated Date: 06/09/2022 11:53:07 Livestock Feeder Date: 06/09/2022 17:01:24 Dictated By: DO XIOMARA WYNNE
== END 2022-06-09 12:45 | disposition home or self-care (01) ==
LOC: ENDO 09:58
PROVIDERS: ATTEND Surgery
DX: D12.3 Benign neoplasm of transverse colon (principal); D12.5 Benign neoplasm of sigmoid colon; D12.8 Benign neoplasm of rectum; Z79.899 Other long term (current) drug therapy; Z87.891 Personal history of nicotine dependence; E66.9 Obesity, unspecified; Z68.39 Body mass index [BMI] 39.0-39.9, adult
CPT/HCPCS: 82947; 88305

== ENCOUNTER 2023-01-13 05:41 | Outpatient (CLI) | payer MEDICARE ==
[~2023-01-13] VITALS: Ht 162.6 cm; Wt 107.0 kg
[2023-01-13] MEDS ORDERED: PRAV20TA3 PO (13:59)
[2023-01-13] MEDS ORDERED: DAPA10TA PO (13:59)
== END 2023-01-13 14:04 | disposition home or self-care (01) ==
LOC: PREOP 05:41
PROVIDERS: ATTEND Surgery
DX: Z01.818 Encounter for other preprocedural examination (principal); Z12.11 Encounter for screening for malignant neoplasm of colon; Z86.010 Personal history of colon polyps

== ENCOUNTER 2023-01-26 09:34 | Day surgery (SDC) | payer MEDICARE ==
[~2023-01-26] VITALS: Ht 162 cm; Wt 107.0 kg
[~2023-01-26 09:34] MED LIST changes: +DAPA10TA PO; +PRAV20TA3 PO
[2023-01-26] MEDS ORDERED: LACTATED RINGERS 1,000 ML IV STA (09:36)
[2023-01-26 10:05] VITALS: BP 115/90
--- NOTE | 2023-01-26 10:14 | Progress Note-Pre Operative ---
Pre-Operative Progress Note Date H&P Reviewed: Jan 26, 2023 Time H&P Reviewed: 10:13 History & Physical: H&P Reviewed, Patient Examed, No changes noted Pre-Operative Diagnosis: History of polyps EMILIA JACKSON DO Jan 26, 2023 10:14
[2023-01-26] MEDS ORDERED: PROPOFOL INJECTION 50 ML IV ONE (10:37)
--- NOTE | 2023-01-26 11:03 | Progress Note-Post Operative ---
Post-Operative Progess Note Surgeon (s)/Legal Advisor (s) Surgeon EMILIA JACKSON DO Legal Advisor: na Pre-Operative Diagnosis History of polyps Post-Operative Diagnosis Colon polyps Procedure & Operative Findings Date of Procedure 01/26/23 Procedure Performed/Findings colonoscopy with hot biopsy polypectomy x3 Anesthesia Type per check processor Estimated Blood Loss Estimated blood loss (mL): 0 Specimens/Packing Specimens Removed colon polyps EMILIA JACKSON DO Jan 26, 2023 11:03
--- NOTE | 2023-01-26 11:03 | Anesthesia-General Post-Op ---
MAC Patient Condition Mental Status/LOC: Same as Preop Cardiovascular: Satisfactory Nausea/Vomiting: Absent Respiratory: Satisfactory Pain: Controlled Complications: Absent Post Op Complications Complications None Follow Up Care/Instructions Patient Instructions None needed. Anesthesiology Discharge Order Discharge Order Patient is doing well, no complaints, stable vital signs, no apparent adverse anesthesia problems. No complications reported per nursing. MARY SKINNER CRNA Jan 26, 2023 11:03
[2023-01-26 11:05] VITALS: BP 126/64
--- NOTE | 2023-01-26 11:05 | Discharge Inst-Simple/Standard ---
Discharge Inst-Standard Reconcile Patient Problems Problems Reviewed?: Yes Patient Instructions/Follow Up Plan of Care/Instructions/FU: Follow up with Dr. Rahman in 2 weeks Activity as Tolerated: Yes Discharge Diet: Regular Diet EMILIA RAHMAN DO Jan 26, 2023 11:05
[2023-01-26 11:37] VITALS: BP 126/64
--- NOTE | 2023-01-26 15:50 | OPERATIVE REPORT ---
DATE OF SERVICE: 01/26/2023 PREOPERATIVE DIAGNOSIS: History of polyps. POSTOPERATIVE DIAGNOSIS: Colon polyps. PROCEDURE: Colonoscopy with hot biopsy polypectomy x3. SURGEON: Emilia Rahman DO ANESTHESIA: Per COMMUNITY DEVELOPMENT SPECIALIST. ESTIMATED BLOOD LOSS: None. COMPLICATIONS: None. INDICATIONS: The patient is a 57-year-old female with history of polyps. She understands risks and benefits of procedure and wished to proceed. Consent was signed and in chart. DESCRIPTION OF PROCEDURE: The patient was taken to endoscopy suite, placed in left lateral recumbent position. Timeout was performed. Digital rectal exam was performed. Some internal hemorrhoids present. No polyps, masses or ulcerations. Scope was inserted in the rectum, advanced all the way to the cecum with minimal difficulty. Prep was adequate. Scope was slowly retracted back. No polyps, masses or ulcerations within the cecum. In the ascending colon, a small polyp was present on which hot biopsy polypectomy was performed. Scope was then continuously retracted back. No polyps, masses or ulcerations in the remainder of the ascending, transverse and descending colon. In the sigmoid colon at the previous tattoo site, a very small regrowth present polyp. Hot biopsy polypectomy was performed. Scope was then slowly retracted back. Another small polyp in the sigmoid colon was present, which hot biopsy polypectomy was performed. Scope was then continuously retracted back in the rectum where it was also retroflexed, noting no other pathology. Scope was returned to its normal position, slowly withdrawn until completely removed. The patient tolerated the procedure well, no complications, taken to recovery room in stable condition. RECOMMENDATIONS: The patient due to the regrowth at the tattoo polyp present, would recommend repeat colonoscopy in one year. Any issues before that, be seen at that time. Job ID: [id number] DocumentID: [id number] Dictated Date: 01/26/2023 11:03:29 Communications Clerk Date: 01/26/2023 15:49:00 Dictated By: EMILIA RAHMAN DO
== END 2023-01-26 11:47 | disposition home or self-care (01) ==
LOC: ENDO 09:34
PROVIDERS: ATTEND Surgery
DX: Z09 Encounter for follow-up examination after completed treatment for conditions other than malignant neoplasm (principal); D12.2 Benign neoplasm of ascending colon; D12.5 Benign neoplasm of sigmoid colon; K63.5 Polyp of colon; K64.8 Other hemorrhoids; Z28.310 Unvaccinated for COVID-19; Z87.891 Personal history of nicotine dependence; E66.9 Obesity, unspecified; G47.33 Obstructive sleep apnea (adult) (pediatric); Z68.41 Body mass index [BMI] 40.0-44.9, adult
CPT/HCPCS: 82947

== ENCOUNTER 2023-09-28 15:18 | Emergency (ER) | payer MEDICARE, MEDICAID ==
[~2023-09-28] VITALS: Ht 162.5 cm; Wt 98.8 kg
[2023-09-28] MEDS ORDERED: predniSONE 20 MG TABLET PO ONE (16:15)
[2023-09-28] MEDS ORDERED: RT-Ipratropium/Albuterol NEB 3 ML VIAL INH ONE (16:15)
[2023-09-28] MEDS ORDERED: NS IV 1000 ML 1,000 ML IV SCH (16:15)
--- NOTE | 2023-09-28 16:20 | ED Respiratory ---
General Chief Complaint: Chest Pain Stated Complaint: PNEUMONIA Source: patient Exam Limitations: no limitations (STACI SOMMER) History of Present Illness Date Seen by Provider: Sep 28, 2023 Time Seen by Provider: 16:17 Initial Comments Patient is a 58-year-old female who presents the ED for coughing and shortness of breath. States she has been feeling short of breath for the past week and a half. She reports a wet productive cough with chest tightness and pain. She chronically wears 4 L. She states with exertion she has increased to 5 L. She does have breathing treatments at home which she has not been doing. She was seen at [facility] sent to the ED concerning for COPD exacerbation versus pneumonia. She states this all started when she went to the [facility]. She denies any vomit, diarrhea but does report nasal congestion sore throat. She cannot receive IM steroids as she develops allergic reaction. She is able to tolerate oral steroids. She reports subjective fever. She denies of any abdominal pain, pain with urination frequent urination, headache, dizziness, visual changes. Denies cardiac history. Not on blood thinners. No recent travels or surgeries. Denies of any leg swelling (STACI SOMMER) Allergies and Home Medications Allergies Coded Allergies: Penicillins (Verified Allergy, Unknown, 07/05/17) Sulfa (Sulfonamide Antibiotics) (Verified Allergy, Unknown, 07/05/17) codeine (Verified Allergy, Unknown, 07/05/17) hydrocodone (Verified Allergy, Unknown, 07/05/17) levofloxacin (Verified Allergy, Unknown, 07/05/17) promethazine (Verified Allergy, Unknown, 07/05/17) Uncoded Allergies: IV CONTRAST (Allergy, Mild, 10/02/17) Patient Home Medication List Home Medication List Reviewed: Yes (SATCI SOMMER) ALPRAZolam (ALPRAZolam) 0.25 Mg Tablet, 0.25 MG PO BID PRN for ANXIETY Prescribed by: JULIAN VEGA on 11/25/20 6606 Albuterol Sulfate (Ventolin Hfa) 1 Puff Puff, 2 PUFF INH Q4H PRN for SHORTNESS OF BREATH, (Reported) Entered as Reported by: GEORGIA GONZÁLES on 03/29/19 1053 Albuterol Sulfate (Albuterol Sulfate) 2.5 Mg/3 Ml Vial.neb, 2.5 MG NEB QID PRN for SHORTNESS OF BREATH, (Reported) Entered as Reported by: GEORGIA GONZÁLES on 03/29/19 1053 Amlodipine Besylate/Benazepril (Amlodipine-Benazepril 5-10 mg) 1 Each Capsule, 2 CAP PO DAILY, (Reported) Entered as Reported by: GEORGIA GONZÁLES on 03/29/19 1019 Ascorbate Calcium (Vitamin C) 500 Mg Tablet, 500 MG PO DAILY, (Reported) Entered as Reported by: GEORGIA GONZÁLES on 03/29/19 1032 Budesonide/Formoterol Fumarate (Symbicort 160-4.5 Mcg Inhaler) 10.2 Gm Hfa.aer.ad, 2 PUFF IH BID, (Reported) Entered as Reported by: GEORGIA GONZÁLES on 03/29/19 1053 Dapagliflozin Propanediol (Farxiga) 10 Mg Tablet, 10 MG PO DAILY, (Reported) Entered as Reported by: JENN WILSON on 01/13/23 135 Doxycycline Monohydrate (Doxycycline Monohydrate) 100 Mg Tablet, 100 MG PO BID Prescribed by: HOWARD ROSEN on 09/28/23 190 Pravastatin Sodium (Pravastatin Sodium) 20 Mg Tablet, 20 MG PO DAILY, (Reported) Entered as Reported by: JENN WILSON on 01/13/23 135 Prednisone (Prednisone) 50 Mg Tab, 50 MG PO DAILY Prescribed by: HOWARD ROSEN on 09/28/23 190 Tiotropium Castile (Spiriva Respimat 1.25MCG/ACTUATION) 4 Gm Mist.inhal, 2 PUFF IH DAILY Prescribed by: JULIAN VEGA on 11/25/20 180 Review of Systems Review of Systems Constitutional: No chills, No diaphoresis; malaise, weakness EENTM: No ear pain, No blurred vision, No double vision Respiratory: cough, dyspnea on exertion, short of breath Cardiovascular: No chest pain Gastrointestinal: No abdominal pain, No diarrhea, No nausea, No vomiting Genitourinary: No decreased output, No discharge, No dysuria, No frequency Musculoskeletal: No back pain, No joint pain Skin: No change in color, No change in hair/nails (STACI SOMMER) All Other Systems Reviewed Negative Unless Noted: Yes (STACI SOMMER) Past Vjsjczq-Ugsklj-Wskxvv Hx Immunizations Up To Date Tetanus Booster (TDap): Unknown PED Vaccines UTD: Yes First/Initial COVID19 Vaccinat: NO Second COVID19 Vaccination Lucho: NO Third COVID19 Vaccination Date: NO (STACI SOMMER) Seasonal Allergies Seasonal Allergies: No (STACI SOMMER) Past Medical History Surgeries: Yes Appendectomy, Gallbladder, Hysterectomy, Orthopedic, Tonsillectomy Respiratory: Yes Sleep Apnea, COPD Currently Using CPAP: Yes Cardiac: Yes Hypertension Neurological: No Genitourinary: No Kidney Infection, Kidney Stones Gastrointestinal: Yes (BLOOD IN STOOL) Musculoskeletal: No Endocrine: Yes Diabetes, Non-Insulin dep HEENT: No Cancer: No Psychosocial: No Anxiety, Depression Integumentary: No Blood Disorders: No Adverse Reaction/Blood Tranf: No (STACI SOMMER) Family Medical History Diabetes mellitus 19 MOTHER G8 BROTHER G8 SISTER FH: COPD (chronic obstructive pulmonary disease) 19 MOTHER FH: esophageal cancer G8 BROTHER Hypertension 19 MOTHER Myocardial infarction 19 MOTHER No Pertinent Family Hx (STACI SOMMER) Physical Exam Vital Signs - First Documented 09/28/23 16:00 Temp 37.4 Pulse 112 Resp 22 B/P (MAP) 145/81 (102) Pulse Ox 96 O2 Delivery Nasal Cannula O2 Flow Rate 4.00 (HARPREET CASTLE MD) Capillary Refill : (STACI SOMMER) Height: 5'4.00" Weight: 238lbs. 6.0oz. 98.955167cf; 40.77 BMI Method:Stated General Appearance: WD/WN, no apparent distress Eyes: Bilateral Eye Normal Inspection, Bilateral Eye PERRL, Bilateral Eye EOMI HEENT: PERRL/EOMI, normal ENT inspection, TMs normal, pharynx normal Neck: non-tender, full range of motion, supple Respiratory: chest non-tender, normal breath sounds, no respiratory distress, n o accessory muscle use, decreased breath sounds Cardiovascular: regular rate, rhythm, no edema, no gallop, no JVD Gastrointestinal: normal bowel sounds, non tender, soft, no organomegaly Extremities: normal range of motion, non-tender, normal inspection, no pedal edema Neurologic/Psychiatric: distribution supervisor II-XII nml as tested, no motor/sensory deficits, alert, normal mood/affect, oriented x 3 Skin: normal color, warm/dry (STACI SOMMER) Focused Exam Lactate Level 09/28/23 16:23: Lactic Acid Level 1.31 (HARPREET CASTLE MD) Lactic Acid Level Laboratory Tests Test 09/28/23 16:23 Lactic Acid Level 1.31 MMOL/L (0.50-2.00) (HARPREET CASTLE MD) Progress/Results/Core Measures Suspected Sepsis SIRS Temperature: Pulse: Respiratory Rate: Laboratory Tests 09/28/23 16:23: White Blood Count 11.8H Blood Pressure / Mean: 09/28/23 16:23: Lactic Acid Level 1.31 Laboratory Tests 09/28/23 16:23: Creatinine 0.76, INR Comment 1.1, Platelet Count 266, Total Bilirubin 0.7 (STACI SOMMRE) Results/Orders Lab Results Laboratory Tests Test 09/28/23 16:23 09/28/23 17:03 Range/Units White Blood Count 11.8 H 4.3-11.0 10^3/uL Red Blood Count 4.45 3.80-5.11 10^6/uL Hemoglobin 13.3 11.5-16.0 g/dL Hematocrit 41 35-52 % Mean Corpuscular Volume 93 80-99 fL Mean Corpuscular Hemoglobin 30 25-34 pg Mean Corpuscular Hemoglobin Concent 32 32-36 g/dL Red Cell Distribution Width 12.5 10.0-14.5 % Platelet Count 266 130-400 10^3/uL Mean Platelet Volume 9.9 9.0-12.2 fL Immature Granulocyte % (Auto) 0 % Neutrophils (%) (Auto) 79 H 42-75 % Lymphocytes (%) (Auto) 14 12-44 % Monocytes (%) (Auto) 6 0-12 % Eosinophils (%) (Auto) 1 0-10 % Basophils (%) (Auto) 1 0-10 % Neutrophils # (Auto) 9.2 H 1.8-7.8 10^3/uL Lymphocytes # (Auto) 1.6 1.0-4.0 10^3/uL Monocytes # (Auto) 0.7 0.0-1.0 10^3/uL Eosinophils # (Auto) 0.2 0.0-0.3 10^3/uL Basophils # (Auto) 0.1 0.0-0.1 10^3/uL Immature Granulocyte # (Auto) 0.0 0.0-0.1 10^3/uL Prothrombin Time 14.4 12.2-14.7 SEC INR Comment 1.1 0.8-1.4 Activated Partial Thromboplast Time 36 H 24-35 SEC Sodium Level 138 135-145 MMOL/L Potassium Level 4.0 3.6-5.0 MMOL/L Chloride Level 95 L 98-107 MMOL/L Carbon Dioxide Level 32 21-32 MMOL/L Anion Gap 11 5-14 MMOL/L Blood Urea Nitrogen 10 7-18 MG/DL Creatinine 0.76 0.60-1.30 MG/DL Estimat Glomerular Filtration Rate 91 BUN/Creatinine Ratio 13 Glucose Level 253 H 70-105 MG/DL Lactic Acid Level 1.31 0.50-2.00 MMOL/L Calcium Level 9.4 8.5-10.1 MG/DL Corrected Calcium 9.1 8.5-10.1 MG/DL Total Bilirubin 0.7 0.1-1.0 MG/DL Aspartate Amino Transf (AST/SGOT) 13 5-34 U/L Alanine Aminotransferase (ALT/SGPT) 12 0-55 U/L Alkaline Phosphatase 83 40-136 U/L Troponin I < 0.028 <0.028 NG/ML B-Type Natriuretic Peptide 21.6 <100.0 PG/ML Total Protein 7.7 6.4-8.2 GM/DL Albumin 4.4 3.2-4.5 GM/DL Urine Color YELLOW Urine Clarity CLEAR Urine pH 5.0 5-9 Urine Specific Roberts >=1.030 1.016-1.022 Urine Protein 1+ H NEGATIVE Urine Glucose (UA) 3+ H NEGATIVE Urine Ketones 3+ H NEGATIVE Urine Nitrite NEGATIVE NEGATIVE Urine Bilirubin 2+ H NEGATIVE Urine Urobilinogen 0.2 < = 1.0 MG/DL Urine Leukocyte Esterase NEGATIVE NEGATIVE Urine RBC (Auto) NEGATIVE NEGATIVE Urine RBC 0-2 /HPF Urine WBC RARE /HPF Urine Squamous Epithelial Cells >50 H /HPF Urine Crystals PRESENT H /LPF Urine Amorphous Sediment RARE DHIRAJ URATES H /LPF Urine Bacteria FEW H /HPF Urine Casts NONE /LPF Urine Mucus MODERATE H /LPF Urine Culture Indicated CULTURE PENDING (HARPREET CASTLE MD) Medications Given in ED Current Medications Medications Dose Ordered Sig/Ventura Route Start Time Stop Time Status Last Admin Dose Admin Albuterol/ Ipratropium 3 ml ONCE ONCE INH 09/28/23 16:15 09/28/23 16:16 DC 09/28/23 16:38 3 ML Prednisone 50 mg ONCE ONCE PO 09/28/23 16:15 09/28/23 16:16 DC 09/28/23 16:41 50 MG (HARPREET CASTLE MD) Vital Signs/I&O 09/28/23 09/28/23 09/28/23 16:00 16:39 19:25 Temp 37.4 Pulse 112 103 Resp 22 22 B/P (MAP) 145/81 (102) 154/93 Pulse Ox 96 96 97 O2 Delivery Nasal Cannula Nasal Cannula Nasal Cannula O2 Flow Rate 4.00 5.00 4.00 (HARPREET CASTLE MD) Vital Signs/I&O Capillary Refill : (STACI SOMMER) Departure Communication (PCP) Patient is a 58-year-old with a history of COPD presents ED with cough shortness of breath for the past week and a half. Patient Was seen at [facility] and transferred to the ER by POV. Differential diagnosis COPD exacerbation, pneumonia, viral syndrome. Patient Has not been doing her breathing treatments at home. Denies of any leg swelling. No known cardiac history. No recent travels or surgeries. Patient chronically wears 4 L. Diminished lung sounds in the lower lung carrion. Patient states she cannot receive IM steroids secondary to allergic reaction. She received oral prednisone 50 mg. Did receive DuoNeb breathing treatment. Septic workup was initiated. She was tachycardic but afebrile. CBC 11.8. Chemistry showed glucose of 253 but otherwise grossly unremarkable. Normal lactic acid. Kidney function liver function within normal limits. Troponin negative. BNP negative. Chest x-ray shows Streaky opacities in the lung bases which may relate to atelectasis and/or infiltrate. Refused COVID influenza swab. She did receive Rocephin 1g. Patient Was started on a liter of fluid. Protein and glucose ketones noted in urine. No strong evidence of infection. She appeared dry. heart rate was around 112 on arrival and improved after second liter of fluid to around 100 bpm. EKG sinus tachycardia without evidence of ST elevation or depression. She is doing much better at this time. She is wanting to go home. Her breathing did improve. Lung sounds were much more clear. She has multiple antibiotic allergies. At this time will discharge with doxycycline. Did provide short burst steroids. Recommend using your nebulizer treatment at home. Need to follow-up your PCP in 2 days for reevaluation. If any worsening symptoms return back to ED. appears to be combination of pneumonia versus COPD exacerbation. Able to talk in complete sentences. (STACI SOMMER) Impression Primary Impression: Pneumonia Disposition: HOME, SELF-CARE Condition: Stable Departure-Patient Inst. Decision time for Depature: 19:03 (STACI SOMMER) Referrals: ALLIE FRY MD (PCP) Primary Care Physician NO,LOCAL PHYSICIAN (Family) Primary Care Physician Patient Instructions: Pneumonia, Adult ED Add. Discharge Instructions: If increased short of breath or symptoms or symptoms to return back to ED. Take antibiotics and prednisone as prescribed. Breathing treatments every 4-6 hours. Follow-up with PCP in 2 to 3 days for reevaluation. All discharge instructions reviewed with patient and/or family. Voiced underst anding. Scripts Prednisone (Prednisone) 50 Mg Tab 50 MG PO DAILY for 4 Days, #4 TAB Prov: STACI SOMMER 09/28/23 Doxycycline Monohydrate (Doxycycline Monohydrate) 100 Mg Tablet 100 MG PO BID for 10 Days, #20 TAB Prov: STACI SOMMER 09/28/23 ATTENDING PHYSICIAN NOTE: I was physically present as attending physician in the emergency department during the care of this patient, but I was not directly involved in the decision making or delivery of care for this patient. (HARPREET CASTLE MD) STACI SOMMER Sep 28, 2023 16:20 HARPREET CASTLE MD Sep 28, 2023 21:51
[2023-09-28 16:34] LABS: BASOPHILS # (AUTO) 0.1 10^3/uL (0.0-0.1); BASOPHILS % (AUTO) 1 % (0-10); EOSINOPHILS # (AUTO) 0.2 10^3/uL (0.0-0.3); EOSINOPHILS % (AUTO) 1 % (0-10); HEMATOCRIT 41 % (35-52); HEMOGLOBIN 13.3 g/dL (11.5-16.0); LYMPHOCYTES # (AUTO) 1.6 10^3/uL (1.0-4.0); LYMPHOCYTES % (AUTO) 14 % (12-44); MEAN CORPUSCULAR HEMOGLOBIN 30 pg (25-34); MEAN CORPUSCULAR HGB CONC 32 g/dL (32-36); MEAN CORPUSCULAR VOLUME 93 fL (80-99); MEAN PLATELET VOLUME 9.9 fL (9.0-12.2); MONOCYTES # (AUTO) 0.7 10^3/uL (0.0-1.0); MONOCYTES % (AUTO) 6 % (0-12); NEUTROPHILS # (AUTO) 9.2 10^3/uL (1.8-7.8); NEUTROPHILS % (AUTO) 79 % (42-75); PLATELET COUNT 266 10^3/uL (130-400); WHITE BLOOD COUNT 11.8 10^3/uL (4.3-11.0)
[2023-09-28 16:47] LABS: INR 1.1 (0.8-1.4); PROTHROMBIN TIME PATIENT 14.4 SEC (12.2-14.7)
[2023-09-28 16:56] LABS: ALANINE AMINOTRANSFERASE 12 U/L (0-55); ALBUMIN 4.4 GM/DL (3.2-4.5); ALKALINE PHOSPHATASE 83 U/L (40-136); BILIRUBIN,TOTAL 0.7 MG/DL (0.1-1.0); BUN/CREATININE RATIO 13; CALCIUM 9.4 MG/DL (8.5-10.1); CARBON DIOXIDE 32 MMOL/L (21-32); CHLORIDE 95 MMOL/L (98-107); CREATININE SERUM 0.76 MG/DL (0.60-1.30); GFR ESTIMATED 91; GLUCOSE 253 MG/DL (70-105); SODIUM 138 MMOL/L (135-145); TOTAL PROTEIN 7.7 GM/DL (6.4-8.2)
--- NOTE | 2023-09-28 16:56 | Diagnostic Imaging Report ---
EXAMINATION: Chest radiograph, portable AP view. DATE: 09/28/2023 4:53 PM INDICATION: 58-year-old female, chest pain for one week. COMPARISON: November 25, 2020. FINDINGS: Heart size and mediastinal contours are unchanged. There is no identified pneumothorax. There are streaky opacities in the lung bases. This is similar to the prior exam. IMPRESSION: 1. Streaky opacities in the lung bases which may relate to atelectasis and/or infiltrate. Dictated by: Dictated on workstation # [id number]
[2023-09-28] MEDS ORDERED: cefTRIAXone IV/IM 1,000 MG in NS (IVPB) 50 ML 50 ML IV STA (17:10)
[2023-09-28 17:34] LABS: BACTERIA,URINE FEW /HPF; BILIRUBIN,URINE 2+ (NEGATIVE); CLARITY,URINE CLEAR; COLOR,URINE YELLOW; GLUCOSE, URINE (UA) 3+ (NEGATIVE); KETONES,URINE 3+ (NEGATIVE); LEUKOCYTE ESTERASE ,URINE NEGATIVE (NEGATIVE); NITRITE,URINE NEGATIVE (NEGATIVE); PROTEIN,URINE 1+ (NEGATIVE); RBC,URINE 0-2 /HPF; SQUAMOUS EPITHELIAL CELL,UR >50 /HPF; WBC,URINE RARE /HPF
[2023-09-28 17:35] LABS: AMORPHOUS SEDIMENT,UR RARE AMOR URATES /LPF
[2023-09-28] MEDS ORDERED: NS IV 1000 ML 1,000 ML IV STA (18:02)
[2023-09-28] MEDS ORDERED: DOXY100T31 PO (19:05)
[2023-09-28] MEDS ORDERED: PRD50T PO (19:05)
[2023-09-28 19:25] VITALS: BP 154/93
== END 2023-09-28 19:28 | disposition home or self-care (01) ==
LOC: EDUNIT# 15:18 → ER 15:22
DX: J18.9 Pneumonia, unspecified organism (principal); G47.30 Sleep apnea, unspecified; J44.9 Chronic obstructive pulmonary disease, unspecified; Z99.81 Dependence on supplemental oxygen
CPT/HCPCS: 36415; 71045; 80053; 81000; 83605; 83880; 84484; 85025; 85610; 85730; 87040; 87088; 93005; 94640